=== PATIENT | male | born 1960 | race Caucasian/White ===

== ENCOUNTER 2016-08-15 12:07 | Emergency (ER) | payer OTHER ==
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
[2016-08-15] MEDS ORDERED: OXYCODONE-ACETAMINOPHEN 5-325 MG TABLET PO ONE (12:20)
[2016-08-15 12:47] LABS: ABSOLUTE BASOPHILS # (AUTO) 0.1 10^3/uL (0.0-0.2); ABSOLUTE EOSINOPHILS # (AUTO) 0.2 10^3/uL (0.0-0.6); ABSOLUTE LYMPHOCYTES (AUTO) 1.6 10^3/uL (0.5-4.7); ABSOLUTE MONOCYTES (AUTO) 0.6 10^3/uL (0.1-1.4); ABSOLUTE NEUT (AUTO) 8.1 10^3/uL (1.7-8.2); BASOPHILS % (AUTO) 1.2 % (0-2); HEMATOCRIT 46.3 % (37.9-51.0); HEMOGLOBIN 16.2 g/dL (13.5-17.0); HGB HCT DIFFERENCE 2.3; LYMPHOCYTES % (AUTO) 14.6 % (13-45); MEAN CORPUSCULAR HEMOGLOBIN 32.5 pg (27.0-33.4); MEAN CORPUSCULAR VOLUME 93 fl (80-97); RED BLOOD COUNT 4.98 10^6/uL (4.35-5.55); RED CELL DISTRIBUTION WIDTH 14.7 % (11.5-14.0); SEGMENTED NEUTROPHILS % (AUTO) 76.2 % (42-78); WHITE BLOOD COUNT 10.7 10^3/uL (4.0-10.5)
[2016-08-15 12:58] LABS: APPEARANCE,URINE CLEAR; BILIRUBIN,URINE NEGATIVE (NEGATIVE); GLUCOSE, URINE NEGATIVE (NEGATIVE); KETONES,URINE NEGATIVE (NEGATIVE); LEUKOCYTE ESTERASE,URINE NEGATIVE (NEGATIVE); NITRITE,URINE NEGATIVE (NEGATIVE); PROTEIN,URINE NEGATIVE (NEGATIVE); URINE SPECIFIC GRAVITY 1.009; UROBILINOGEN,URINE NEGATIVE mg/dL (<2.0)
[2016-08-15 13:10] LABS: ALANINE AMINOTRANSFERASE 42 U/L (21-72); ALBUMIN 4.2 g/dL (3.5-5.0); ALKALINE PHOSPHATASE 83 U/L (38-126); ANION GAP 14 (5-19); ASPARTATE AMINO TRANSFERASE 26 U/L (17-59); BILIRUBIN,TOTAL 0.3 mg/dL (0.2-1.3); BLOOD UREA NITROGEN 4 mg/dL (7-20); CARBON DIOXIDE 27 mmol/L (22-30); CHLORIDE 100 mmol/L (98-107); CREATININE RESULT 0.68 mg/dL (0.52-1.25); GLUCOSE 79 mg/dL (75-110); POTASSIUM 5.4 mmol/L (3.6-5.0); SODIUM 140.5 mmol/L (137-145); TOTAL PROTEIN 7.6 g/dL (6.3-8.2)
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
[2016-08-15 14:28] VITALS: BP 132/83
== END 2016-08-15 14:14 | disposition home or self-care (01) ==
LOC: ER 12:07
DX: I96 Gangrene, not elsewhere classified (principal); M79.671 Pain in right foot; J44.9 Chronic obstructive pulmonary disease, unspecified; F17.200 Nicotine dependence, unspecified, uncomplicated; I10 Essential (primary) hypertension; F43.10 Post-traumatic stress disorder, unspecified
CPT/HCPCS: 36415; 80053; 81001; 83605; 85025; 99283

== ENCOUNTER → 2016-12-02 | Outpatient (CLI) | payer OTHER ==
--- NOTE | 2016-12-02 17:21 | XCELERA REPORT ---
[address] [address] Lower Extremity Arterial Evaluation Name: JACKIE MENEZES Age: 56 yrs Gender: Male : 1960 Patient Status: Outpatient Patient Location: Study Date: 12/02/2016 03:57 PM Procedure: A color flow and duplex scan of the lower extremity arteries was performed on the right with velocity and waveform analysis. Reason For Study: RLE PAIN Ordering Physician: FELIX PICKETT Performed By: Silvestre Lawrence Measurements and Calculations Right Left GRINDER HAND PSV 121.8 cm/sec Prox PFA PSV -703.0 cm/sec Dist ELIS PSV 12.3 cm/sec Dist WEB UI DEVELOPER PSV -23.3 cm/sec Dist Mark A PSV 15.5 cm/sec Mati Pedis PSV -15.1 cm/sec Right Side Arterial Evaluation Normal velocity and triphasic waveforms noted in the Common Femoral artery . Biphasic Deep Femoral with stenosis. Occluded Femoral artery with a patent Femero Popliteal bypass, with monophasic flow, preserved velocity with moderate spectral broadening. Trickle flow in the infrageniculate vessels. A large, 5 cm aneurysm just below Popliteal area. Ankle Brachial index was not done. Interpretation Summary Severe hemodynamically significant lesions in the right lower extremity only, on duplex imaging, at rest. Fem Pop, though functioning, poor infrageniculate flow. A large aneurysm noted. Discussed with implementation lead surgeon. 'The patient to keep an appointment With Dr Pickett, in . : FELIX PICKETT > Jose D Yo
== END ==
LOC: SP 15:33
PROVIDERS: ATTEND Surgery Vascular Surgery
DX: M79.661 Pain in right lower leg (principal); R20.0 Anesthesia of skin; I72.4 Aneurysm of artery of lower extremity
CPT/HCPCS: 93926

== ENCOUNTER 2017-08-21 06:55 | Inpatient (IN) | payer MEDICAID, OTHER ==
[2017-08-21] MEDS ORDERED: IPRATROPIUM/ALBUTEROL 0.5-2.5 MG/3 ML AMPUL NEB ONE ×2 (06:59→07:01)
[2017-08-21] MEDS ORDERED: ALBUTEROL SULFATE 0.083% NEB 2.5 MG/3 ML AMPUL NEB ONE ×2 (06:59→07:01)
[2017-08-21] MEDS ORDERED: MIDAZOLAM 2 MG/2 ML INJ IV ONE (07:16)
[2017-08-21] MEDS ORDERED: FENTANYL CITRATE INJ/PF 100 MCG/2 ML AMPUL IV ONE (07:17)
[2017-08-21] MEDS ORDERED: NALOXONE HCL INJ 2 MG/2 ML DISP.SYRIN ONE (07:26)
[2017-08-21] MEDS ORDERED: FLUMAZENIL INJ 0.5 MG/5 ML VIAL ONE (07:30)
--- NOTE | 2017-08-21 07:33 | RADIOLOGY REPORT (SQ) ---
EXAM DESCRIPTION: CHEST SINGLE VIEW CLINICAL HISTORY: hypoxia COMPARISON: None. FINDINGS: Single chest. Large right-sided pneumothorax with evidence of right to left mediastinal shift and flattening of the right hemidiaphragm. This is compatible with a tension pneumothorax. This pneumothorax is approximately 50%. Heart is not enlarged. Elevation the left hemidiaphragm. No right-sided rib fractures. Upper abdominal soft tissues unremarkable. IMPRESSION: 1. Findings compatible with approximately 50% right-sided pneumothorax. There is evidence of tension with right to left mediastinal shift and flattening of the right hemidiaphragm. Report called to Dr. Clay at 0632 hours on 08/21/2027
[2017-08-21 07:39] LABS: ABSOLUTE BASOPHILS # (AUTO) 0.2 10^3/uL (0.0-0.2); ABSOLUTE EOSINOPHILS # (AUTO) 0.4 10^3/uL (0.0-0.6); ABSOLUTE LYMPHOCYTES (AUTO) 4.3 10^3/uL (0.5-4.7); ABSOLUTE MONOCYTES (AUTO) 0.9 10^3/uL (0.1-1.4); ABSOLUTE NEUT (AUTO) 9.3 10^3/uL (1.7-8.2); BASOPHILS % (AUTO) 1.2 % (0-2); EOSINOPHILS % (AUTO) 2.7 % (0-6); HEMATOCRIT 47.1 % (37.9-51.0); HEMOGLOBIN 16.1 g/dL (13.5-17.0); LYMPHOCYTES % (AUTO) 28.4 % (13-45); MEAN CORPUSCULAR HEMOGLOBIN 32.9 pg (27.0-33.4); MEAN CORPUSCULAR HGB CONC 34.1 g/dL (32.0-36.0); MEAN CORPUSCULAR VOLUME 97 fl (80-97); MONOCYTES % (AUTO) 5.9 % (3-13); PLATELET COUNT 432 10^3/uL (150-450); RED BLOOD COUNT 4.88 10^6/uL (4.35-5.55); RED CELL DISTRIBUTION WIDTH 13.8 % (11.5-14.0); SEGMENTED NEUTROPHILS % (AUTO) 61.8 % (42-78); TOTAL CELLS COUNTED % (AUTO) 100 %
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
[2017-08-21 07:41] LABS: INTERNATIONAL RATION (INR) 1.21; PROTHROMBIN TIME 16.1 SEC (11.4-15.4)
[2017-08-21 07:42] LABS: PARTIAL THROMBOPLASTIN TIME 39.9 SEC (23.5-35.8)
[2017-08-21] MEDS ORDERED: FLUMAZENIL INJ 0.5 MG/5 ML VIAL IV ONE (07:45)
[2017-08-21] MEDS ORDERED: NALOXONE HCL INJ 2 MG/2 ML DISP.SYRIN IV ONE (07:45)
[2017-08-21 07:55] LABS: ALANINE AMINOTRANSFERASE 58 U/L (21-72); ALBUMIN 4.6 g/dL (3.5-5.0); ALKALINE PHOSPHATASE 88 U/L (38-126); ANION GAP 13 (5-19); ASPARTATE AMINO TRANSFERASE 58 U/L (17-59); BILIRUBIN,DIRECT 0.3 mg/dL (0.0-0.4); BILIRUBIN,TOTAL 0.3 mg/dL (0.2-1.3); BLOOD UREA NITROGEN 3 mg/dL (7-20); CALCIUM 9.7 mg/dL (8.4-10.2); CARBON DIOXIDE 22 mmol/L (22-30); CHLORIDE 102 mmol/L (98-107); CREATINE KINASE 162 U/L (55-170); GLUCOSE 134 mg/dL (75-110); LIPASE 121.6 U/L (23-300); POTASSIUM 4.4 mmol/L (3.6-5.0); SODIUM 137.2 mmol/L (137-145); TOTAL PROTEIN 7.3 g/dL (6.3-8.2)
[2017-08-21 08:11] LABS: VENOUS BLOOD BASE EXCESS -6.7 mmol/L; VENOUS BLOOD HCO3 22.1 mmol/L (20-32); VENOUS BLOOD PCO2 56.5 mmHg (35-63); VENOUS BLOOD PH 7.21 (7.30-7.42)
--- NOTE | 2017-08-21 08:12 | EKG REPORT ---
SEVERITY:- ABNORMAL ECG - SINUS TACHYCARDIA CONSIDER ANTEROSEPTAL INFARCT NONSPECIFIC ST-T CHANGES INFERIOR LEADS : Confirmed by: Yfn Copeland MD 21-Aug-2017 08:11:38
[2017-08-21 08:17] LABS: NT PRO BNP 235 pg/mL (5-900)
[2017-08-21 08:26] LABS: TROPONIN I < 0.012 ng/mL
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
[2017-08-21] MEDS ORDERED: ACETAMINOPHEN 325 MG TABLET PO PRN (09:56)
[2017-08-21] MEDS ORDERED: IPRATROPIUM/ALBUTEROL 0.5-2.5 MG/3 ML AMPUL NEB PRN (09:56)
[2017-08-21] MEDS ORDERED: GABAPENTIN 300 MG CAPSULE PO ONE (10:09)
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
[2017-08-21] MEDS ORDERED: FOLIC ACID 1 MG TABLET PO ONE (10:45)
[2017-08-21] MEDS ORDERED: MULTIVITAMIN TABLET PO ONE (10:45)
[2017-08-21] MEDS ORDERED: THIAMINE HCL 100 MG TABLET PO ONE (10:45)
[2017-08-21] MEDS: HYDROCODONE/ACETAMINOPHEN 5-325 MG TABLET PO PRN ×2 (11:02→18:22)
[2017-08-21] MEDS: AMLODIPINE BESYLATE 5 MG TABLET PO SCH (11:02)
[2017-08-21] MEDS: FAMOTIDINE 20 MG TABLET PO SCH ×2 (11:03→21:32)
--- NOTE | 2017-08-21 15:40 | RADIOLOGY REPORT (SQ) ---
EXAM DESCRIPTION: CHEST SINGLE VIEW COMPLETED DATE/TIME: 08/21/2017 3:18 pm REASON FOR STUDY: PTX resolution COMPARISON: 08/21/2017 EXAM PARAMETERS: NUMBER OF VIEWS: One view. TECHNIQUE: Single frontal radiographic view of the chest acquired. RADIATION DOSE: NA LIMITATIONS: None. FINDINGS: LUNGS AND PLEURA: There has been further interval decrease in size of the right pneumothor ax with a small apical pneumothorax being identified on the current study. The previously described left retrocardiac volume loss appears improved. There is some blunting of the left costophrenic angl e most consistent with pleural reaction. MEDIASTINUM AND HILAR STRUCTURES: No masses. Contour normal. HEART AND VASCULAR STRUCTURES: Heart normal in size. Normal vasculature. BONES: No acute findings. HARDWARE: The right chest tube appears to have been pulled back with the side hole projected along th e right lateral chest wall. OTHER: No other significant finding. IMPRESSION: Further interval decrease in size of the right pneumothorax with a small apical pneumoth orax being identified on the current study. Other findings as noted above TECHNICAL DOCUMENTATION: JOB ID: [id number] [employer]- All Rights Reserved
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
[2017-08-21] MEDS: LORAZEPAM INJ 2 MG/1 ML VIAL IV PRN ×2 (18:22→22:01)
[2017-08-21] MEDS ORDERED: LIDOCAINE 1% INJ-PF (10 MG/ML) 30 ML SDV ONE ×2 (19:00→19:10)
--- NOTE | 2017-08-21 19:03 | PDOC PROGRESS REPORT ---
Subjective Progress Note for:: 08/21/17 Subjective:: Patient with no complaints however nursing staff noted air leak around the tube. Reason For Visit: RIGHT SPONTANEOUS TENSION PNEUMOTHORAX Physical Exam Vital Signs: Temp Pulse Resp BP Pulse Ox 98.0 F 106 H 18 164/80 H 100 08/21/17 18:04 08/21/17 18:04 08/21/17 18:04 08/21/17 18:04 08/21/17 18:04 Intake & Output 08/20/17 08/21/17 08/22/17 06:59 06:59 06:59 Weight 54.6 kg General appearance: PRESENT: no acute distress, cooperative Respiratory exam: PRESENT: other - Right-sided chest tube is in place but the sideholes are outside of the body Results Laboratory Results: 08/21/17 08/21/17 12:07 15:02 Lactic Acid 1.4 1.7 Impressions: Chest X-Ray 08/21/17 14:29 IMPRESSION: Further interval decrease in size of the right pneumothorax with a small apical pneumothorax being identified on the current study. Other findings as noted above Assessment & Plan - Diagnosis (1) Spontaneous tension pneumothorax Is this a current diagnosis for this admission?: Yes Plan: Status post chest tube placement done in the ER. However the chest tube has now been displaced with the sideholes outside of the patient's body. Will remove the chest tube and new chest tube. Patient understands risks and benefits of the procedure.
--- NOTE | 2017-08-21 19:34 | Operative Report ---
Operative Report DATE OF SURGERY: 08/21/17 PREOPERATIVE DIAGNOSIS: Right pneumothorax. Dysfunctional right-sided chest tube. POSTOPERATIVE DIAGNOSIS: Right-sided pneumothorax. Dysfunctional right-sided chest tube. OPERATION: Right tube thoracostomy SURGEON: JEREMIAS NARVAEZ ANESTHESIA: Local TISSUE REMOVED OR ALTERED: None COMPLICATIONS: None ESTIMATED BLOOD LOSS: Minimal INTRAOPERATIVE FINDINGS: Right-sided chest tube with its sideholes outside of the patient's body. PROCEDURE: Consent was obtained. Procedure was done at the patient's bedside. Patient's right chest was prepped and draped in usual sterile fashion. Local anesthetic was injected. Incision was made at the anterior axillary line couple centimeters below the mammary crease. A tunnel was then created to entered pleural cavity at the level of the mammary crease. The pleural cavity was entered with a Shelley clamp without difficulty. 24 [place] chest tube was placed without difficulty. It was appropriately positioned and it was sutured in place. Dressings were applied and the dysfunctional chest tube that was in place inferior to this new chest tube was pulled after cutting his suture. Occlusive dressings were applied to the wound. Patient tolerated procedure well with no apparent complications. Stat portable chest x-ray was ordered.
--- NOTE | 2017-08-21 19:57 | RADIOLOGY REPORT (SQ) ---
EXAM DESCRIPTION: CHEST SINGLE VIEW COMPLETED DATE/TIME: 08/21/2017 7:43 pm REASON FOR STUDY: chest tube placement COMPARISON: 08/21/2017 EXAM PARAMETERS: NUMBER OF VIEWS: One view. TECHNIQUE: Single frontal radiographic view of the chest acquired. RADIATION DOSE: NA LIMITATIONS: None. FINDINGS: LUNGS AND PLEURA: Chest tube repositioned. The tip in the apex. No visualized pneumothor ax on the right. Minimal atelectasis at the left base. MEDIASTINUM AND HILAR STRUCTURES: No masses. Contour normal. HEART AND VASCULAR STRUCTURES: Heart normal in size. Normal vasculature. BONES: No acute findings. HARDWARE: None in the chest. OTHER: No other significant finding. IMPRESSION: Right chest tube reposition. No pneumothorax identified. TECHNICAL DOCUMENTATION: JOB ID: [id number] [employer]- All Rights Reserved
[2017-08-21] MEDS ORDERED: INFLUENZA ADLT QUAD (36MOS+) 2017-18 VAC 0.5 ML SYR IM PRN (20:41)
[2017-08-22] MEDS: HYDROCODONE/ACETAMINOPHEN 5-325 MG TABLET PO PRN ×3 (06:45→21:47)
[2017-08-22] MEDS: LORAZEPAM INJ 2 MG/1 ML VIAL IV PRN ×5 (06:55→21:06)
[2017-08-22 07:02] LABS: ABSOLUTE BASOPHILS # (AUTO) 0.1 10^3/uL (0.0-0.2); ABSOLUTE LYMPHOCYTES (AUTO) 1.6 10^3/uL (0.5-4.7); ABSOLUTE MONOCYTES (AUTO) 1.1 10^3/uL (0.1-1.4); ABSOLUTE NEUT (AUTO) 9.7 10^3/uL (1.7-8.2); BASOPHILS % (AUTO) 0.7 % (0-2); EOSINOPHILS % (AUTO) 0.4 % (0-6); LYMPHOCYTES % (AUTO) 12.6 % (13-45); MEAN CORPUSCULAR HEMOGLOBIN 32.7 pg (27.0-33.4); MEAN CORPUSCULAR VOLUME 96 fl (80-97); MONOCYTES % (AUTO) 8.8 % (3-13); PLATELET COUNT 340 10^3/uL (150-450); RED BLOOD COUNT 4.15 10^6/uL (4.35-5.55); RED CELL DISTRIBUTION WIDTH 13.9 % (11.5-14.0); SEGMENTED NEUTROPHILS % (AUTO) 77.5 % (42-78); TOTAL CELLS COUNTED % (AUTO) 100 %; WHITE BLOOD COUNT 12.4 10^3/uL (4.0-10.5)
[2017-08-22 07:15] LABS: ALANINE AMINOTRANSFERASE 49 U/L (21-72); ALBUMIN 3.8 g/dL (3.5-5.0); ALKALINE PHOSPHATASE 64 U/L (38-126); ANION GAP 9 (5-19); ASPARTATE AMINO TRANSFERASE 36 U/L (17-59); BILIRUBIN,DIRECT 0.3 mg/dL (0.0-0.4); BILIRUBIN,TOTAL 0.5 mg/dL (0.2-1.3); BLOOD UREA NITROGEN 16 mg/dL (7-20); CALCIUM 9.9 mg/dL (8.4-10.2); CARBON DIOXIDE 22 mmol/L (22-30); CHLORIDE 101 mmol/L (98-107); CHOLESTEROL 168.55 mg/dL (0-200); GLUCOSE 89 mg/dL (75-110); HEMOGLOBIN 13.6 g/dL (13.5-17.0); POTASSIUM 4.9 mmol/L (3.6-5.0); TOTAL PROTEIN 6.3 g/dL (6.3-8.2); TRIGLYCERIDES 47 mg/dL (<150)
[2017-08-22 07:26] LABS: DIRECT LDL 36 mg/dL (<100)
--- NOTE | 2017-08-22 08:37 | RADIOLOGY REPORT (SQ) ---
EXAM DESCRIPTION: CHEST SINGLE VIEW COMPLETED DATE/TIME: 08/22/2017 8:20 am REASON FOR STUDY: Pneumothorax COMPARISON: Chest films 08/21/2017 EXAM PARAMETERS: NUMBER OF VIEWS: One view. TECHNIQUE: Single frontal radiographic view of the chest acquired. RADIATION DOSE: NA LIMITATIONS: None. FINDINGS: LUNGS AND PLEURA: Right chest tube in good positioning. There is a trace right apical pneumothorax marked with arrows. Trace right chest wall air, stable compared to previous studies. Right lung is well inflated. No focal infiltrates. On the left side, there is old shrapnel and bandlike irregular scar over the lung base, and left apic al pleural-parenchymal nodular thickening likely chronic. No left pneumothorax. No right or left pleural effusion MEDIASTINUM AND HILAR STRUCTURES: No masses. Contour normal. HEART AND VASCULAR STRUCTURES: Heart normal in size. Normal vasculature. BONES: No acute findings. HARDWARE: Right-sided chest tube in good positioning OTHER: No other significant finding. IMPRESSION: Right chest tube in good positioning. Trace right apical pneumothorax. Stable minimal right lateral chest wall air Chronic scarring at the left lung base and left lung apex. TECHNICAL DOCUMENTATION: JOB ID: [id number] [employer] 2000- All Rights Reserved
[2017-08-22] MEDS: FAMOTIDINE 20 MG TABLET PO SCH ×2 (10:35→21:48)
[2017-08-22] MEDS: FOLIC ACID 1 MG TABLET PO SCH (10:35)
[2017-08-22] MEDS: AMLODIPINE BESYLATE 5 MG TABLET PO SCH (10:35)
[2017-08-22] MEDS: MULTIVITAMIN TABLET PO SCH (10:36)
[2017-08-22] MEDS: THIAMINE HCL 100 MG TABLET PO SCH (10:36)
[2017-08-22] MEDS: FLUTICASONE/SALMETEROL DISKUS 250-50 MCG/DOSE IH SCH (10:47)
[2017-08-22] MEDS ORDERED: DULOXETINE HCL 30 MG CAPSULE.DR PO ONE (13:00)
[2017-08-22] MEDS ORDERED: GABAPENTIN 100 MG CAPSULE PO ONE (13:00)
[2017-08-22] MEDS ORDERED: AMLODIPINE BESYLATE 5 MG TABLET PO SCH (13:03)
--- NOTE | 2017-08-22 13:35 | PDOC PROGRESS REPORT ---
Subjective Progress Note for:: 08/22/17 Subjective:: Pt states that he is short of breath. Pt states that he has been shaking a lot. Nursing states that pt has been given Ativan overnight. Nursing states that she is having pain at sight of chest tube. Reason For Visit: RIGHT SPONTANEOUS TENSION PNEUMOTHORAX Physical Exam Vital Signs: Temp Pulse Resp BP Pulse Ox 98.0 F 92 16 152/73 H 98 08/22/17 07:32 08/22/17 07:15 08/22/17 03:17 08/22/17 07:15 08/22/17 07:15 Intake & Output 08/21/17 08/22/17 08/23/17 06:59 06:59 06:59 Intake Total 111 Output Total 250 Balance -139 Weight 54.7 kg General appearance: PRESENT: no acute distress, well-developed, well-nourished Head exam: PRESENT: atraumatic, normocephalic Eye exam: PRESENT: conjunctiva pink, EOMI. ABSENT: scleral icterus Ear exam: PRESENT: normal external ear exam Mouth exam: PRESENT: moist, tongue midline Neck exam: ABSENT: carotid bruit, JVD, lymphadenopathy, thyromegaly Respiratory exam: PRESENT: other - +chest tube on right side, + coarse breaths bilaterally, +wheezing Cardiovascular exam: PRESENT: RRR. ABSENT: diastolic murmur, rubs, systolic murmur Pulses: PRESENT: normal dorsalis pedis pul Vascular exam: PRESENT: normal capillary refill GI/Abdominal exam: PRESENT: normal bowel sounds, soft. ABSENT: distended, guarding, mass, organolmegaly, rebound, tenderness Rectal exam: PRESENT: deferred Extremities exam: PRESENT: full ROM. ABSENT: calf tenderness, clubbing, pedal edema Musculoskeletal exam: PRESENT: full ROM Neurological exam: PRESENT: alert, awake, oriented to person, oriented to place , oriented to time, oriented to situation, CN II-XII grossly intact. ABSENT: motor sensory deficit Psychiatric exam: PRESENT: other - +tremor of hands Skin exam: PRESENT: dry, intact, warm. ABSENT: cyanosis, rash Results Laboratory Results: 08/22/17 06:32 08/22/17 06:32 08/21/17 08/22/17 08/22/17 15:02 06:32 06:32 WBC 12.4 H RBC 4.15 L Hgb 13.6 D Hct 40.0 MCV 96 MCH 32.7 MCHC 34.0 RDW 13.9 Plt Count 340 Seg Neutrophils % 77.5 Lymphocytes % 12.6 L Monocytes % 8.8 Eosinophils % 0.4 Basophils % 0.7 Absolute Neutrophils 9.7 H Absolute Lymphocytes 1.6 Absolute Monocytes 1.1 Absolute Eosinophils 0.0 Absolute Basophils 0.1 Sodium 132.0 L Potassium 4.9 Chloride 101 Carbon Dioxide 22 Anion Gap 9 BUN 16 Creatinine 0.69 Est GFR ( Amer) > 60 Est GFR (Non-Af Amer) > 60 Glucose 89 Lactic Acid 1.7 Calcium 9.9 Total Bilirubin 0.5 AST 36 ALT 49 Alkaline Phosphatase 64 Total Protein 6.3 Albumin 3.8 Triglycerides 47 Cholesterol 168.55 LDL Cholesterol Direct 36 VLDL Cholesterol 9.0 L HDL Cholesterol 135 Impressions: Chest X-Ray 08/22/17 06:00 IMPRESSION: Right chest tube in good positioning. Trace right apical pneumothorax. Stable minimal right lateral chest wall air Chronic scarring at the left lung base and left lung apex. Assessment & Plan - Diagnosis (1) Spontaneous tension pneumothorax Is this a current diagnosis for this admission?: Yes Plan: Status post chest tube placement: Chest tube in place. Appreciate Surgery's assistance. 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 Will place patient on statin for anti inflammatory benefit. (3) EtOH dependence Is this a current diagnosis for this admission?: Yes Plan: Will continue supplement replacement thiamine, folate, and multivitamin. Will place on scheduled Klonopin 1 mg every 8 hours with parameters to hold for sedation. Will continue Ativan as needed. (4) Tobacco dependence Is this a current diagnosis for this admission?: Yes Plan: Nicotine patch. (5) Epistaxis Is this a current diagnosis for this admission?: Yes Plan: Will continue monitor. (6) Moderate protein-calorie malnutrition Is this a current diagnosis for this admission?: Yes Plan: Supplemental drinks (7) Depression Is this a current diagnosis for this admission?: Yes Plan: Cymbalta (8) Emphysema lung Is this a current diagnosis for this admission?: Yes Plan: Most likely cause of patient's right spontaneous pneumothorax: will continue breathing treatment. (9) COPD (chronic obstructive pulmonary disease) Qualifiers: COPD type: COPD with acute exacerbation Qualified Code(s): J44.1 - Chronic obstructive pulmonary disease with (acute) exacerbation Is this a current diagnosis for this admission?: Yes Plan: Will place on DuoNeb Q6 hours. Will place on Solumedrol IV. (10) History of DVT (deep vein thrombosis) Is this a current diagnosis for this admission?: Yes Plan: We will continue Pradaxa - Time Time Spent with patient: 15-24 minutes Anticipated discharge: Home
[2017-08-22] MEDS: IPRATROPIUM/ALBUTEROL 0.5-2.5 MG/3 ML AMPUL NEB SCH ×2 (13:57→19:57)
[2017-08-22] MEDS: METHYLPREDNISOLONE INJ 40 MG/1 ML SDV IV SCH ×2 (14:03→21:59)
[2017-08-22] MEDS: CLONAZEPAM 1 MG TABLET PO SCH ×2 (14:04→21:46)
[2017-08-22] MEDS ORDERED: NICOTINE 21 MG/24 HR PATCH.TD24 TD ONE ×2 (17:00→22:00)
--- NOTE | 2017-08-22 17:20 | PDOC PROGRESS REPORT ---
Subjective Progress Note for:: 08/22/17 Subjective:: Mild pains at chest tube site Reason For Visit: RIGHT SPONTANEOUS TENSION PNEUMOTHORAX Physical Exam Vital Signs: Temp Pulse Resp BP Pulse Ox 98.7 F 110 H 19 129/69 H 97 08/22/17 16:39 08/22/17 16:39 08/22/17 16:39 08/22/17 16:39 08/22/17 16:39 Intake & Output 08/21/17 08/22/17 08/23/17 06:59 06:59 06:59 Intake Total 111 1065 Output Total 250 Balance -139 1065 Weight 54.7 kg Exam: Chest tube no obvious ait leak. Results Laboratory Results: 08/22/17 06:32 08/22/17 06:32 08/22/17 08/22/17 06:32 06:32 WBC 12.4 H RBC 4.15 L Hgb 13.6 D Hct 40.0 MCV 96 MCH 32.7 MCHC 34.0 RDW 13.9 Plt Count 340 Seg Neutrophils % 77.5 Lymphocytes % 12.6 L Monocytes % 8.8 Eosinophils % 0.4 Basophils % 0.7 Absolute Neutrophils 9.7 H Absolute Lymphocytes 1.6 Absolute Monocytes 1.1 Absolute Eosinophils 0.0 Absolute Basophils 0.1 Sodium 132.0 L Potassium 4.9 Chloride 101 Carbon Dioxide 22 Anion Gap 9 BUN 16 Creatinine 0.69 Est GFR ( Amer) > 60 Est GFR (Non-Af Amer) > 60 Glucose 89 Calcium 9.9 Total Bilirubin 0.5 AST 36 ALT 49 Alkaline Phosphatase 64 Total Protein 6.3 Albumin 3.8 Triglycerides 47 Cholesterol 168.55 LDL Cholesterol Direct 36 VLDL Cholesterol 9.0 L HDL Cholesterol 135 Impressions: Chest X-Ray 08/22/17 06:00 IMPRESSION: Right chest tube in good positioning. Trace right apical pneumothorax. Stable minimal right lateral chest wall air Chronic scarring at the left lung base and left lung apex. Assessment & Plan - Time Time Spent with patient: 15-24 minutes - Inpatient Certification Medical Necessity: Need Close Monitoring Due to Risk of Patient Decompensation, Risk of Complication if Not Cared For in Hospital - Plan Summary Plan Summary: Chest xray shows minimal apical pneumothorax. Leave chest tube tosuction today. Recheck CXR in am Possible D/C chest tube in 24 - 48 hrs.
[2017-08-22] MEDS: GABAPENTIN 100 MG CAPSULE PO SCH (17:53)
[2017-08-22] MEDS: DABIGATRAN ETEXILATE 150 MG CAPSULE PO SCH (21:43)
[2017-08-22] MEDS: SIMVASTATIN 10 MG TABLET PO SCH (21:48)
[2017-08-23] MEDS: GABAPENTIN 100 MG CAPSULE PO SCH ×5 (01:32→23:27)
[2017-08-23] MEDS: IPRATROPIUM/ALBUTEROL 0.5-2.5 MG/3 ML AMPUL NEB SCH ×4 (01:53→20:02)
[2017-08-23] MEDS: CLONAZEPAM 1 MG TABLET PO SCH ×3 (07:04→21:16)
[2017-08-23] MEDS: HYDROCODONE/ACETAMINOPHEN 5-325 MG TABLET PO PRN ×2 (07:05→16:32)
[2017-08-23] MEDS: METHYLPREDNISOLONE INJ 40 MG/1 ML SDV IV SCH ×3 (07:06→21:17)
--- NOTE | 2017-08-23 09:06 | PDOC PROGRESS REPORT ---
Subjective Progress Note for:: 08/23/17 Subjective:: Pt states that his breathing is much improved. Pt states that he is still coughing at times. Pt states that the ativan is helping. Reason For Visit: RIGHT SPONTANEOUS TENSION PNEUMOTHORAX Physical Exam Vital Signs: Temp Pulse Resp BP Pulse Ox 97.9 F 118 H 18 133/68 H 93 08/23/17 08:43 08/23/17 08:43 08/23/17 08:43 08/23/17 08:43 08/23/17 08:43 Intake & Output 08/22/17 08/23/17 08/24/17 06:59 06:59 06:59 Intake Total 111 2196 Output Total 250 1360 Balance -139 836 Weight 54.7 kg 56.6 kg General appearance: PRESENT: no acute distress, thin Head exam: PRESENT: atraumatic, normocephalic Eye exam: PRESENT: conjunctiva pink, EOMI. ABSENT: scleral icterus Ear exam: PRESENT: normal external ear exam Mouth exam: PRESENT: moist, tongue midline Neck exam: ABSENT: carotid bruit, JVD, lymphadenopathy, thyromegaly Respiratory exam: PRESENT: accessory muscle use, wheezes - scant wheezing. ABSENT: rales, rhonchi Cardiovascular exam: PRESENT: RRR. ABSENT: diastolic murmur, rubs, systolic murmur Pulses: PRESENT: normal dorsalis pedis pul Vascular exam: PRESENT: normal capillary refill GI/Abdominal exam: PRESENT: normal bowel sounds, soft. ABSENT: distended, guarding, mass, organolmegaly, rebound, tenderness Rectal exam: PRESENT: deferred Extremities exam: PRESENT: full ROM. ABSENT: calf tenderness, clubbing, pedal edema Musculoskeletal exam: PRESENT: other - bilateral AKA Neurological exam: PRESENT: alert, awake, oriented to person, oriented to place , oriented to time, oriented to situation, CN II-XII grossly intact. ABSENT: motor sensory deficit Psychiatric exam: PRESENT: appropriate affect, normal mood. ABSENT: homicidal ideation, suicidal ideation Skin exam: PRESENT: dry, intact, warm. ABSENT: cyanosis, rash Results Laboratory Results: 08/22/17 06:32 08/22/17 06:32 Impressions: Chest X-Ray 08/22/17 06:00 IMPRESSION: Right chest tube in good positioning. Trace right apical pneumothorax. Stable minimal right lateral chest wall air Chronic scarring at the left lung base and left lung apex. Assessment & Plan - Diagnosis (1) Spontaneous tension pneumothorax Is this a current diagnosis for this admission?: Yes Plan: Status post chest tube placement: Chest tube in place. Appreciate Surgery's assistance. Will check CXR. 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 Statin. (3) EtOH dependence Is this a current diagnosis for this admission?: Yes Plan: Will continue supplement replacement thiamine, folate, and multivitamin. Will continue scheduled Klonopin 1 mg every 8 hours with parameters to hold for sedation. Will continue Ativan as needed. (4) Tobacco dependence Is this a current diagnosis for this admission?: Yes Plan: Nicotine patch. (5) Epistaxis Is this a current diagnosis for this admission?: Yes Plan: Will continue monitor. (6) Moderate protein-calorie malnutrition Is this a current diagnosis for this admission?: Yes Plan: Supplemental drinks (7) Depression Is this a current diagnosis for this admission?: Yes Plan: Cymbalta (8) Emphysema lung Is this a current diagnosis for this admission?: Yes Plan: Most likely cause of patient's right spontaneous pneumothorax: will continue breathing treatment. (9) COPD (chronic obstructive pulmonary disease) Qualifiers: COPD type: COPD with acute exacerbation Qualified Code(s): J44.1 - Chronic obstructive pulmonary disease with (acute) exacerbation Is this a current diagnosis for this admission?: Yes Plan: Will place on DuoNeb Q6 hours. Will continue Solumedrol IV Q8. (10) History of DVT (deep vein thrombosis) Is this a current diagnosis for this admission?: Yes Plan: Will continue Pradaxa - Time Time Spent with patient: 15-24 minutes
[2017-08-23] MEDS: DABIGATRAN ETEXILATE 150 MG CAPSULE PO SCH ×2 (10:12→21:14)
[2017-08-23] MEDS: NICOTINE 21 MG/24 HR PATCH.TD24 TD SCH (10:12)
[2017-08-23] MEDS: FOLIC ACID 1 MG TABLET PO SCH (10:13)
[2017-08-23] MEDS: MULTIVITAMIN TABLET PO SCH (10:13)
[2017-08-23] MEDS: AMLODIPINE BESYLATE 10 MG TABLET PO SCH (10:13)
[2017-08-23] MEDS: DULOXETINE HCL 30 MG CAPSULE.DR PO SCH (10:14)
[2017-08-23] MEDS: THIAMINE HCL 100 MG TABLET PO SCH (10:14)
[2017-08-23] MEDS: FAMOTIDINE 20 MG TABLET PO SCH ×2 (10:14→21:16)
[2017-08-23] MEDS: FLUTICASONE/SALMETEROL DISKUS 250-50 MCG/DOSE IH SCH (10:16)
[2017-08-23] MEDS: IPRATROPIUM/ALBUTEROL 120 PUFF/4 GM MDI IH SCH (10:16)
--- NOTE | 2017-08-23 12:05 | RADIOLOGY REPORT (SQ) ---
EXAM DESCRIPTION: CHEST PA/LAT COMPLETED DATE/TIME: 08/23/2017 10:16 am REASON FOR STUDY: Pneumothorax COMPARISON: 08/22/2017. EXAM PARAMETERS: NUMBER OF VIEWS: two views TECHNIQUE: Digital Frontal and Lateral radiographic views of the chest acquired. RADIATION DOSE: NA LIMITATIONS: none FINDINGS: LUNGS AND PLEURA: Interval resolution of right apical pneumothorax. Chronic left pleural thickening. Lung [place] are otherwise clear of infiltrates. MEDIASTINUM AND HILAR STRUCTURES: No masses or contour abnormalities. HEART AND VASCULAR STRUCTURES: Heart normal size. Pulmonary vasculature is normal. BONES: No acute findings. HARDWARE: None in the chest. OTHER: Right chest tube directed toward right lung apex. Subcutaneous air along right lower chest wa ll. Chest leads in place. IMPRESSION: Resolution right apical pneumothorax. Residua subcutaneous air right lower chest wall. Otherwise no significant change. TECHNICAL DOCUMENTATION: JOB ID: [id number] [employer]- All Rights Reserved
--- NOTE | 2017-08-23 14:36 | PDOC PROGRESS REPORT ---
Subjective Progress Note for:: 08/23/17 Subjective:: No complaints, no shortness of breath. Patient had chest x-ray this morning off suction. Reason For Visit: RIGHT SPONTANEOUS TENSION PNEUMOTHORAX Physical Exam Vital Signs: Temp Pulse Resp BP Pulse Ox 98.6 F 120 H 16 128/83 H 95 08/23/17 10:47 08/23/17 10:47 08/23/17 10:47 08/23/17 10:47 08/23/17 10:47 Intake & Output 08/22/17 08/23/17 08/24/17 06:59 06:59 06:59 Intake Total 111 2202 575 Output Total 250 1360 150 Balance -139 842 425 Weight 54.7 kg 56.6 kg 59.1 kg General appearance: PRESENT: no acute distress Respiratory exam: PRESENT: other - Chest tube in position. There is an intermittent air leak. There is no evidence of subcutaneous emphysema. Results Laboratory Results: 08/22/17 06:32 08/22/17 06:32 Impressions: Chest X-Ray 08/23/17 09:00 IMPRESSION: Resolution right apical pneumothorax. Residua subcutaneous air right lower chest wall. Otherwise no significant change. Surgeon interpretation: Agree; pneumothorax appears almost resolved Assessment & Plan - Diagnosis (1) Emphysema lung Is this a current diagnosis for this admission?: Yes Plan: Plan: 1. Leave chest tube in today, on waterseal, and observe air leak. If airway closes off tomorrow, will consider removing chest tube. 2. This is patient's first pneumothorax; he has emphysema; he continues to smoke regularly.
[2017-08-23] MEDS: SIMVASTATIN 10 MG TABLET PO SCH (21:15)
[2017-08-24] MEDS: IPRATROPIUM/ALBUTEROL 0.5-2.5 MG/3 ML AMPUL NEB SCH ×4 (02:23→15:52)
[2017-08-24] MEDS: CLONAZEPAM 1 MG TABLET PO SCH ×3 (06:55→21:53)
[2017-08-24] MEDS: GABAPENTIN 100 MG CAPSULE PO SCH ×3 (06:55→18:14)
[2017-08-24] MEDS: METHYLPREDNISOLONE INJ 40 MG/1 ML SDV IV SCH ×3 (06:55→21:54)
[2017-08-24 06:59] LABS: HEMATOCRIT 39.7 % (37.9-51.0); HEMOGLOBIN 13.6 g/dL (13.5-17.0); MEAN CORPUSCULAR HEMOGLOBIN 32.8 pg (27.0-33.4); MEAN CORPUSCULAR HGB CONC 34.3 g/dL (32.0-36.0); MEAN CORPUSCULAR VOLUME 96 fl (80-97); PLATELET COUNT 298 10^3/uL (150-450); RED BLOOD COUNT 4.15 10^6/uL (4.35-5.55); RED CELL DISTRIBUTION WIDTH 13.9 % (11.5-14.0); WHITE BLOOD COUNT 16.2 10^3/uL (4.0-10.5)
[2017-08-24 07:18] LABS: ALBUMIN 3.9 g/dL (3.5-5.0); ANION GAP 8 (5-19); BLOOD UREA NITROGEN 16 mg/dL (7-20); CALCIUM 9.9 mg/dL (8.4-10.2); CARBON DIOXIDE 27 mmol/L (22-30); CHLORIDE 100 mmol/L (98-107); GLUCOSE 112 mg/dL (75-110); POTASSIUM 4.5 mmol/L (3.6-5.0); SODIUM 134.8 mmol/L (137-145); TOTAL PROTEIN 6.3 g/dL (6.3-8.2)
[2017-08-24 07:19] LABS: ALANINE AMINOTRANSFERASE 44 U/L (21-72); ALKALINE PHOSPHATASE 55 U/L (38-126); ASPARTATE AMINO TRANSFERASE 29 U/L (17-59); BILIRUBIN,DIRECT 0.2 mg/dL (0.0-0.4); BILIRUBIN,TOTAL 0.2 mg/dL (0.2-1.3)
[2017-08-24 07:56] LABS: ABSOLUTE LYMPHOCYTES# (MANUAL) 1.1 10^3/uL (0.5-4.7); ABSOLUTE MONOCYTES # (MANUAL) 1.1 10^3/uL (0.1-1.4); ABSOLUTE NEUTROPHILS# (MANUAL) 13.9 10^3/uL (1.7-8.2); BAND NEUTROPHILS % (MANUAL) 5 % (3-5); BASOPHILS % (MANUAL) 0 % (0-2); EOSINOPHILS % (MANUAL) 0 % (0-6); LYMPHOCYTES % (MANUAL) 7 % (13-45); MONOCYTES % (MANUAL) 7 % (3-13); SEGMENTED NEUTROPHILS % (MAN) 81 % (42-78); TOTAL CELLS COUNTED 100
[2017-08-24 08:03] LABS: PLATELET COMMENT ADEQUATE; RBC MORPHOLOGY COMMENT NORMO-CYTIC/CHROMIC
[2017-08-24] MEDS: IPRATROPIUM/ALBUTEROL 120 PUFF/4 GM MDI IH SCH (09:05)
[2017-08-24] MEDS: FLUTICASONE/SALMETEROL DISKUS 250-50 MCG/DOSE IH SCH (09:05)
[2017-08-24] MEDS: DABIGATRAN ETEXILATE 150 MG CAPSULE PO SCH ×2 (09:12→21:52)
[2017-08-24] MEDS: FAMOTIDINE 20 MG TABLET PO SCH ×2 (09:13→21:54)
[2017-08-24] MEDS: DULOXETINE HCL 30 MG CAPSULE.DR PO SCH (09:13)
[2017-08-24] MEDS: HYDROCODONE/ACETAMINOPHEN 5-325 MG TABLET PO PRN ×3 (09:14→21:53)
[2017-08-24] MEDS: THIAMINE HCL 100 MG TABLET PO SCH (09:14)
[2017-08-24] MEDS: AMLODIPINE BESYLATE 10 MG TABLET PO SCH (09:14)
[2017-08-24] MEDS: FOLIC ACID 1 MG TABLET PO SCH (09:14)
[2017-08-24] MEDS: MULTIVITAMIN TABLET PO SCH (09:14)
[2017-08-24] MEDS: NICOTINE 21 MG/24 HR PATCH.TD24 TD SCH (09:15)
--- NOTE | 2017-08-24 14:26 | PDOC PROGRESS REPORT ---
Subjective Progress Note for:: 08/24/17 Subjective:: Pt states that he is feeling much better. Pt states he is breathing better. Reason For Visit: RIGHT SPONTANEOUS TENSION PNEUMOTHORAX Physical Exam Vital Signs: Temp Pulse Resp BP Pulse Ox 98.3 F 99 18 128/67 H 98 08/24/17 12:35 08/24/17 12:35 08/24/17 12:35 08/24/17 12:35 08/24/17 12:35 Intake & Output 08/23/17 08/24/17 08/25/17 06:59 06:59 06:59 Intake Total 2202 1472 350 Output Total 1360 1700 575 Balance 842 -228 -225 Weight 56.6 kg 58.5 kg General appearance: PRESENT: no acute distress, thin Head exam: PRESENT: atraumatic, normocephalic Eye exam: PRESENT: conjunctiva pink, EOMI. ABSENT: scleral icterus Ear exam: PRESENT: normal external ear exam Mouth exam: PRESENT: moist, tongue midline Neck exam: ABSENT: carotid bruit, JVD, lymphadenopathy, thyromegaly Respiratory exam: PRESENT: other - + Right Side with slightly diminished breath sounds and scant wheezing, +Left sided breath improved with scant wheezing. Cardiovascular exam: PRESENT: RRR. ABSENT: diastolic murmur, rubs, systolic murmur Pulses: PRESENT: other - bilateral AKA GI/Abdominal exam: PRESENT: normal bowel sounds, soft. ABSENT: distended, guarding, mass, organolmegaly, rebound, tenderness Rectal exam: PRESENT: deferred Extremities exam: PRESENT: other - Bilatera AKA Musculoskeletal exam: PRESENT: other - Bilateral AKA Neurological exam: PRESENT: alert, awake, oriented to person, oriented to place , oriented to time, oriented to situation, CN II-XII grossly intact. ABSENT: motor sensory deficit Psychiatric exam: PRESENT: appropriate affect, normal mood. ABSENT: homicidal ideation, suicidal ideation Skin exam: PRESENT: dry, intact, warm. ABSENT: cyanosis, rash Results Laboratory Results: 08/24/17 05:49 08/24/17 05:49 08/24/17 08/24/17 05:49 05:49 WBC 16.2 H RBC 4.15 L Hgb 13.6 Hct 39.7 MCV 96 MCH 32.8 MCHC 34.3 RDW 13.9 Plt Count 298 Seg Neutrophils % Not Reportable Lymphocytes % Not Reportable Monocytes % Not Reportable Eosinophils % Not Reportable Basophils % Not Reportable Absolute Neutrophils Not Reportable Absolute Lymphocytes Not Reportable Absolute Monocytes Not Reportable Absolute Eosinophils Not Reportable Absolute Basophils Not Reportable Sodium 134.8 L Potassium 4.5 Chloride 100 Carbon Dioxide 27 Anion Gap 8 BUN 16 Creatinine 0.59 Est GFR ( Amer) > 60 Est GFR (Non-Af Amer) > 60 Glucose 112 H Calcium 9.9 Total Bilirubin 0.2 AST 29 ALT 44 Alkaline Phosphatase 55 Total Protein 6.3 Albumin 3.9 Impressions: Chest X-Ray 08/23/17 09:00 IMPRESSION: Resolution right apical pneumothorax. Residua subcutaneous air right lower chest wall. Otherwise no significant change. Assessment & Plan - Diagnosis (1) Spontaneous tension pneumothorax Is this a current diagnosis for this admission?: Yes Plan: Status post chest tube placement: Chest tube in place. Appreciate Surgery's assistance. 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 Statin. (3) EtOH dependence Is this a current diagnosis for this admission?: Yes Plan: Will continue supplement replacement thiamine, folate, and multivitamin. Will continue scheduled Klonopin 1 mg every 8 hours with parameters to hold for sedation. Will continue Ativan as needed. (4) Tobacco dependence Is this a current diagnosis for this admission?: Yes Plan: Nicotine patch. (5) Epistaxis Is this a current diagnosis for this admission?: Yes Plan: Will continue monitor. (6) Moderate protein-calorie malnutrition Is this a current diagnosis for this admission?: Yes Plan: Supplemental drinks (7) Depression Is this a current diagnosis for this admission?: Yes Plan: Cymbalta (8) Emphysema lung Is this a current diagnosis for this admission?: Yes Plan: Most likely cause of patient's right spontaneous pneumothorax: will continue breathing treatment. (9) COPD (chronic obstructive pulmonary disease) Qualifiers: COPD type: COPD with acute exacerbation Qualified Code(s): J44.1 - Chronic obstructive pulmonary disease with (acute) exacerbation Is this a current diagnosis for this admission?: Yes Plan: Acute Exacerbation of COPD: Will change DuoNeb Q8 hours. Will continue Solumedrol IV Q8. (10) Leukocytosis Is this a current diagnosis for this admission?: Yes Plan: Secondary to Steroids: Will continue to monitor. (11) Hyponatremia Is this a current diagnosis for this admission?: Yes Plan: in setting of ETOH dependence: Improving. Will continue to monitor. (12) History of DVT (deep vein thrombosis) Is this a current diagnosis for this admission?: Yes Plan: Will continue Pradaxa - Time Time Spent with patient: Less than 15 minutes
--- NOTE | 2017-08-24 17:28 | PDOC PROGRESS REPORT ---
Subjective Progress Note for:: 08/24/17 Subjective:: Patient has no complaints. Still bubbling through his chest tube. Reason For Visit: RIGHT SPONTANEOUS TENSION PNEUMOTHORAX Physical Exam Vital Signs: Temp Pulse Resp BP Pulse Ox 98.8 F 96 18 131/65 H 98 08/24/17 16:40 08/24/17 16:40 08/24/17 16:40 08/24/17 16:40 08/24/17 16:40 Intake & Output 08/23/17 08/24/17 08/25/17 06:59 06:59 06:59 Intake Total 2202 1472 350 Output Total 1360 1700 575 Balance 842 228 -225 Weight 56.6 kg 58.5 kg General appearance: PRESENT: no acute distress Respiratory exam: PRESENT: other - Patient still bubbling intermittently out of his chest tube. I took his entire chest tube dressing down. I checked the old chest tube site the new chest tube side and there is no subcutaneous emphysema or bubbling at the exit site. Dressings reapplied. Results Laboratory Results: 08/24/17 05:49 08/24/17 05:49 08/24/17 08/24/17 05:49 05:49 WBC 16.2 H RBC 4.15 L Hgb 13.6 Hct 39.7 MCV 96 MCH 32.8 MCHC 34.3 RDW 13.9 Plt Count 298 Seg Neutrophils % Not Reportable Lymphocytes % Not Reportable Monocytes % Not Reportable Eosinophils % Not Reportable Basophils % Not Reportable Absolute Neutrophils Not Reportable Absolute Lymphocytes Not Reportable Absolute Monocytes Not Reportable Absolute Eosinophils Not Reportable Absolute Basophils Not Reportable Sodium 134.8 L Potassium 4.5 Chloride 100 Carbon Dioxide 27 Anion Gap 8 BUN 16 Creatinine 0.59 Est GFR ( Amer) > 60 Est GFR (Non-Af Amer) > 60 Glucose 112 H Calcium 9.9 Total Bilirubin 0.2 AST 29 ALT 44 Alkaline Phosphatase 55 Total Protein 6.3 Albumin 3.9 Impressions: Chest X-Ray 08/23/17 09:00 IMPRESSION: Resolution right apical pneumothorax. Residua subcutaneous air right lower chest wall. Otherwise no significant change. Assessment & Plan - Diagnosis (1) Emphysema lung Is this a current diagnosis for this admission?: Yes Plan: Status post second chest tube placement for spontaneous pneumothorax right side with persistent, intermittent air leak, no respiratory distress, no subcu air Recommendations: 1. Keep chest tube to waterseal 2. We will check PA lateral chest x-ray tomorrow. If lung is still up, patient may be a candidate for going home with a Heimlich valve
[2017-08-24] MEDS: SIMVASTATIN 10 MG TABLET PO SCH (21:53)
[2017-08-25] MEDS: GABAPENTIN 100 MG CAPSULE PO SCH ×4 (00:08→18:12)
[2017-08-25] MEDS: IPRATROPIUM/ALBUTEROL 0.5-2.5 MG/3 ML AMPUL NEB SCH ×3 (00:14→16:11)
[2017-08-25] MEDS: METHYLPREDNISOLONE INJ 40 MG/1 ML SDV IV SCH ×2 (06:46→13:37)
[2017-08-25] MEDS: CLONAZEPAM 1 MG TABLET PO SCH ×2 (06:47→13:37)
[2017-08-25] MEDS: HYDROCODONE/ACETAMINOPHEN 5-325 MG TABLET PO PRN ×2 (07:42→16:36)
--- NOTE | 2017-08-25 08:40 | RADIOLOGY REPORT (SQ) ---
EXAM DESCRIPTION: CHEST PA/LAT COMPLETED DATE/TIME: 08/25/2017 7:27 am REASON FOR STUDY: Status of pneumothorax right chest COMPARISON: 08/23/2017 NUMBER OF VIEWS: Two view TECHNIQUE: Frontal and lateral radiographic images of the chest acquired. LIMITATIONS: None. FINDINGS: LUNGS AND PLEURA: Less than 10% right apical pneumothorax. Increasing density left lower lobe with ipsilateral volume loss. No effusions. MEDIASTINUM AND HILAR STRUCTURES: Stable heart size and mediastinal structures. HEART AND VASCULAR STRUCTURES: Stable appearance. SUPPORT DEVICES: Appropriate location without change. BONES: No acute findings. OTHER: No other significant finding. IMPRESSION: 10% right apical pneumothorax. TECHNICAL DOCUMENTATION: JOB ID: [id number] [employer]- All Rights Reserved
[2017-08-25] MEDS: FOLIC ACID 1 MG TABLET PO SCH (10:00)
[2017-08-25] MEDS: FLUTICASONE/SALMETEROL DISKUS 250-50 MCG/DOSE IH SCH (10:00)
[2017-08-25] MEDS: DABIGATRAN ETEXILATE 150 MG CAPSULE PO SCH (10:00)
[2017-08-25] MEDS: MULTIVITAMIN TABLET PO SCH (10:02)
[2017-08-25] MEDS: DULOXETINE HCL 30 MG CAPSULE.DR PO SCH (10:02)
[2017-08-25] MEDS: AMLODIPINE BESYLATE 10 MG TABLET PO SCH (10:02)
[2017-08-25] MEDS: FAMOTIDINE 20 MG TABLET PO SCH (10:02)
[2017-08-25] MEDS: THIAMINE HCL 100 MG TABLET PO SCH (10:03)
[2017-08-25] MEDS: NICOTINE 21 MG/24 HR PATCH.TD24 TD SCH (10:03)
--- NOTE | 2017-08-25 12:16 | RADIOLOGY REPORT (SQ) ---
EXAM DESCRIPTION: CT CHEST WITH COMPLETED DATE/TIME: 08/25/2017 11:41 am REASON FOR STUDY: persistent air leak/ beebs COMPARISON: None. TECHNIQUE: CT scan of the chest performed using helical scanning technique with dynamic intravenous contrast injection. Images reviewed with lung, soft tissue and bone windows. Reconstructed coronal and sagittal MPR images reviewed. All images stored on PACS. All CT scanners at this facility use dose modulation, iterative reconstruction, and/or weight based d osing when appropriate to reduce radiation dose to as low as reasonably achievable (ALARA). [facility]: Dose Right [facility]: CareDose [facility]: Dose Right [facility]: Teradose 4D [facility]: Lendinero CONTRAST TYPE AND DOSE: contrast/concentration: Isovue 370.00 mg/ml; Total Contrast Delivered: 60.0 ml; Total Saline Delivered: 55.0 ml RENAL FUNCTION: GFR > 60. RADIATION DOSE: CT Rad equipment meets quality standard of care and radiation dose reduction techniq ues were employed. CTDIvol: 8.0 mGy. DLP: 339 mGy-cm. . LIMITATIONS: None. FINDINGS: LUNGS AND PLEURA: There is mild diffuse centrilobular and paraseptal emphysema with scatte red subpleural cysts involving the right greater than left lung. There is irregularity involving the pleura anteriorly at the lung base as seen on series 4, images 34-41 which may represent sequela to ruptured cyst and the etiology of pneumothorax. There is a small residual right-sided pneumothorax p resent with chest tube in place. There is calcification in evolving the left posterior pleural with adjacent pleural thickening likely sequela to prior infectious or inflammatory process. There is a s piculated lung mass within the left upper lobe with central cavitation seen on series 4, image 15 and series 601, image 39 measuring 1.6 x 1.5 x 2.4 cm concerning for malignancy. Lungs otherwise clear HILAR AND MEDIASTINAL STRUCTURES: No identified masses or abnormal nodes. HEART AND VASCULAR STRUCTURES: Atherosclerotic calcifications including coronary artery calcification s. No aneurysm or dissection. No central pulmonary emboli. No pericardial effusion. HARDWARE: Right-sided chest tube. UPPER ABDOMEN: Tiny low attenuating lesion right hepatic lobe too small to adequately characterize bu t statistically represents a benign cyst. No additional significant findings. Limited exam. THYROID AND OTHER SOFT TISSUES: No masses. No adenopathy. BONES: No significant finding. OTHER: No other significant finding. IMPRESSION: SMALL RESIDUAL RIGHT-SIDED PNEUMOTHORAX WITH CHEST TUBE IN PLACE. THERE ARE SUBPLEURAL CYSTS WITH IRREGULARITY INVOLVING THE ANTERIOR PLEURA NEAR THE BASE WHICH MAY REPRESENT SEQUELA TO A RUPTURED CYST AND COULD BE ETIOLOGY OF PRIOR PNEUMOTHORAX. 2.4 CM SPICULATED NODULE LEFT UPPER LOBE CONCERNING FOR MALIGNANCY. RECOMMEND PET-CT AND/OR LUNG BIO PSY. ADDITIONAL CHRONIC CHANGES ABOVE. TECHNICAL DOCUMENTATION: JOB ID: [id number] Quality ID # [id number]: Final reports with documentation of one or more dose reduction techniques (e.g., Au tomated exposure control, adjustment of the mA and/or kV according to patient size, use of iterative reconstruction technique) 2010 [employer]- All Rights Reserved
--- NOTE | 2017-08-25 13:16 | PDOC PROGRESS REPORT ---
Subjective Progress Note for:: 08/25/17 Subjective:: mild discomfort right chest tube site. Reason For Visit: RIGHT SPONTANEOUS TENSION PNEUMOTHORAX Physical Exam Vital Signs: Temp Pulse Resp BP Pulse Ox 97.5 F 88 16 131/67 H 97 08/25/17 07:01 08/25/17 08:14 08/25/17 08:14 08/25/17 07:01 08/25/17 08:14 Intake & Output 08/24/17 08/25/17 08/26/17 06:59 06:59 06:59 Intake Total 1472 2360 Output Total 1700 2850 50 Balance -228 -490 -50 Weight 58.5 kg 59.3 kg Exam: Persistent air leak despite good position of chest tube.Chest tube in place since 08/21/17. CXRay showed apical pneumothorax and subcu emphysema right chest. Results Laboratory Results: 08/24/17 05:49 08/24/17 05:49 Impressions: Chest X-Ray 08/25/17 07:00 IMPRESSION: 10% right apical pneumothorax. Chest CT 08/25/17 09:05 IMPRESSION: SMALL RESIDUAL RIGHT-SIDED PNEUMOTHORAX WITH CHEST TUBE IN PLACE. THERE ARE SUBPLEURAL CYSTS WITH IRREGULARITY INVOLVING THE ANTERIOR PLEURA NEAR THE BASE WHICH MAY REPRESENT SEQUELA TO A RUPTURED CYST AND COULD BE ETIOLOGY OF PRIOR PNEUMOTHORAX. 2.4 CM SPICULATED NODULE LEFT UPPER LOBE CONCERNING FOR MALIGNANCY. RECOMMEND PET-CT AND/OR LUNG BIOPSY. ADDITIONAL CHRONIC CHANGES ABOVE. Assessment & Plan - Time Time Spent with patient: 15-24 minutes - Plan Summary Plan Summary: Ct scan showed cysts in the lower lobe likely caused of the pneumothorax More interesting is a 2.4 cm spiculated lesion left chest suspicious for malignancy. In view of the persistent right chest tube airleak, pt may need a VATS procedure to stale the cysts and do pleurodesis. Suggest transferring him to [facility]. They can also addressed the lesion on the opposite left lung D/W Dr Coronel
--- NOTE | 2017-08-25 15:54 | PDOC TRANSFER SUMMARY ---
General Admission Date/PCP: 08/21/17 09:07 ARLEN GONZALEZ MD Admission Date: 08/21/17 Transfer Date: 08/25/17 Accepting Facility: [facility] Resuscitation Status: Full Code - Transfer Diagnosis (1) Spontaneous tension pneumothorax Is this a current diagnosis for this admission?: Yes Diagnosis Summary: Pt presented with complaint of acute shortness of breath. Pt was transported to the hospital where he was found to have a spontaneous tension pneumothorax. Pt had chest tube placed in the ER but Dr. Baker General Surgery had to place chest tube due to the sideholes being outside of the pt's body. Once Dr. Baker placed new chest tube positioning was correct. Pt was placed on ETOH withdrawal protocol but pt has done well. Pt was noted to have an air leak. CT of chest was done which demonstrated 10% Pneumothorax and Left 1.6 x 1.5 x 2.4 cm spiculated upper lobe node. (2) PAD (peripheral artery disease) Is this a current diagnosis for this admission?: Yes Diagnosis Summary: Supportive. (3) EtOH dependence Is this a current diagnosis for this admission?: Yes Diagnosis Summary: Patient was placed on Klonopin 1 mg PO Q8 hours with hold parameters for sedation. Pt has done well. Pt has been monitored by nursing for ETOH withdrawal. (4) Tobacco dependence Is this a current diagnosis for this admission?: Yes Diagnosis Summary: Encouraged pt to stop smoking. (5) Epistaxis Is this a current diagnosis for this admission?: Yes Diagnosis Summary: Resolved. (6) Moderate protein-calorie malnutrition Is this a current diagnosis for this admission?: Yes Diagnosis Summary: Will continue to encourage good PO intake. (7) Depression Is this a current diagnosis for this admission?: Yes Diagnosis Summary: Will continue Cymbalta. (8) Emphysema lung Is this a current diagnosis for this admission?: Yes Diagnosis Summary: Encouraged pt to stop smoking. (9) COPD (chronic obstructive pulmonary disease) Is this a current diagnosis for this admission?: Yes Diagnosis Summary: Will continue breathing treatments and space steroids to Q12. (10) Leukocytosis Is this a current diagnosis for this admission?: Yes Diagnosis Summary: Most likely secondary to Steroid: Will continue to monitor. (11) Hyponatremia Is this a current diagnosis for this admission?: Yes Diagnosis Summary: Improving. (12) History of DVT (deep vein thrombosis) Is this a current diagnosis for this admission?: Yes Diagnosis Summary: Pt has been on Pradaxa for 1 year per pt report due to history of DVT. Will hold praxada due to VATS and Lung Biopsy. - Transfer Medications Home Medications: Dabigatran Etexilate Mesylate [Pradaxa 150 mg Capsule] 150 mg PO Q12 08/21/17 Duloxetine HCl [Cymbalta] 60 mg PO DAILY 08/21/17 Gabapentin [Neurontin 100 mg Capsule] 100 mg PO Q6 08/21/17 Ipratropium/Albuterol Sulfate [Combivent Respimat Inhal [place]] 1 puff IH QAM 06/28 Transfer Medications: Current Medications Acetaminophen (Tylenol 325 Mg Tablet) 650 mg PO Q4HP PRN PRN Reason: MILD PAIN OR TEMP > 101 Stop: 09/20/17 09:55 Hydrocodone Bitart/Acetaminophen ([place] 5-325 Mg Tablet) 1 tab PO Q4HP PRN PRN Reason: MODERATE PAIN Stop: 08/29/17 13:08 Last Admin: 08/25/17 07:42 Dose: 1 tab Albuterol/Ipratropium (Duoneb 3 Ml Ampul) 3 ml NEB RTQ4HP PRN PRN Reason: WHEEZING/DYSPNEA Stop: 09/20/17 09:55 Albuterol/Ipratropium (Duoneb 3 Ml Ampul) 3 ml NEB RTQ8 KRISTY Stop: 09/23/17 15:59 Last Admin: 08/25/17 08:14 Dose: 3 ml Amlodipine Besylate (Norvasc 10 Mg Tablet) 10 mg PO DAILY KRISTY Stop: 09/22/17 09:59 Last Admin: 08/25/17 10:02 Dose: 10 mg Clonazepam (Klonopin 1 Mg Tablet) 1 mg PO Q8 KRISTY Stop: 08/29/17 13:59 Last Admin: 08/25/17 13:37 Dose: 1 mg Dabigatran (Pradaxa 150 Mg Capsule) 150 mg PO Q12 KRISTY Stop: 09/21/17 21:59 Last Admin: 08/25/17 10:00 Dose: 150 mg Duloxetine HCl (Cymbalta 30 Mg Capsule.Dr) 60 mg PO DAILY KRISTY Stop: 09/22/17 09:59 Last Admin: 08/25/17 10:02 Dose: 60 mg Famotidine (Pepcid 20 Mg Tablet) 20 mg PO Q12 KRISTY Stop: 09/20/17 09:59 Last Admin: 08/25/17 10:02 Dose: 20 mg Folic Acid (Folvite 1 Mg Tablet) 1 mg PO DAILY KRISTY Stop: 09/21/17 09:59 Last Admin: 08/25/17 10:00 Dose: 1 mg Gabapentin (Neurontin 100 Mg Capsule) 100 mg PO Q6 KRISTY Stop: 09/21/17 17:59 Last Admin: 08/25/17 13:37 Dose: 100 mg Influenza Virus Vaccine Quadrival (Fluzone Adlt Quad [id number] Vac 0.5 Ml Syr) 0.5 ml IM .DISCHARGE PRN PRN Reason: THIS MED IS NOT "PRN" Stop: 09/20/17 20:40 Lorazepam (Ativan Inj 2 Mg/1 Ml Vial) 2 mg IV Q2HP PRN PRN Reason: ANXIETY/AGITATION Stop: 08/28/17 10:26 Last Admin: 08/22/17 21:06 Dose: 2 mg Methylprednisolone Sodium Succinate (Solu-Medrol Inj/Pf 40 Mg/1 Ml Sdv) 40 mg IV Q8 KRISTY Stop: 09/21/17 13:59 Last Admin: 08/25/17 13:37 Dose: 40 mg Multivitamins (Tab-A-Myke (Multiple Vitamin) Tablet) 1 tab PO DAILY KRISTY Stop: 09/21/17 09:59 Last Admin: 08/25/17 10:02 Dose: 1 tab Nicotine (Nicoderm 21 Mg/24 Hr Transderm Patch) 1 each TD DAILY KRISTY Stop: 09/22/17 09:59 Last Admin: 08/25/17 10:03 Dose: 1 each Fluticasone/Salmeterol (Advair 250-50 Diskus 14 Dose/Diskus) 1 inh IH DAILY KRISTY Stop: 09/21/17 09:59 Last Admin: 08/25/17 10:00 Dose: 1 inh Simvastatin (Zocor 10 Mg Tablet) 20 mg PO QHS KRISTY Stop: 09/21/17 21:59 Last Admin: 08/24/17 21:53 Dose: 20 mg Thiamine HCl (Thiamine 100 Mg Tablet) 100 mg PO DAILY KRISTY Stop: 09/21/17 09:59 Last Admin: 08/25/17 10:03 Dose: 100 mg - Allergies Allergies/Adverse Reactions: No Known Allergies Allergy (Verified 08/15/16 12:16) Hospital Course Hospital Course: Pt is a 57 year old male with past medical history for DVT, COPD, Emphysema, and Alcoholism presented to the ER with acute shortness of breath. Pt was found to have a spontaneous tension pneumothorax. Pt had a chest tube placed in the ER which was replace by Dr. Baker. Pt was found to have an air leak. Surgery recommended transfer for VATS. Pt was placed on Klonopin 1mg Q8 with parameter to hold for sedation. Pt has done well during stay. Pt was treated to for COPD Exacerbation but breathing has improved. Steroids were spaced today 08/25/2017. Pt did present with Epistaxis but resolved. Pradaxa was held but restarted. Pradaxa was discontinue today on 08/25/2017 due to possible VATS and Lung Biopsy. Pt was found to have a 1.5X1.6X2.4 cm spiculated mass found to CT today. Spoke to Dr. Muniz who agreed to accept the pt. Physical Exam Vital Signs: Temp Pulse Resp BP Pulse Ox 97.5 F 88 16 131/67 H 97 08/25/17 07:01 08/25/17 08:14 08/25/17 08:14 08/25/17 07:01 08/25/17 08:14 Intake & Output 08/24/17 08/25/17 08/26/17 06:59 06:59 06:59 Intake Total 1472 2360 1054 Output Total 1700 2850 1025 Balance -228 -490 29 Weight 58.5 kg 59.3 kg General appearance: PRESENT: no acute distress, thin Head exam: PRESENT: atraumatic, normocephalic Eye exam: PRESENT: conjunctiva pink, EOMI. ABSENT: scleral icterus Ear exam: PRESENT: normal external ear exam Mouth exam: PRESENT: moist, tongue midline Neck exam: ABSENT: carotid bruit, JVD, lymphadenopathy, thyromegaly Respiratory exam: PRESENT: wheezes - +scant wheezing, + slight accessory muscle use, Pt on room air. Cardiovascular exam: PRESENT: RRR. ABSENT: diastolic murmur, rubs, systolic murmur GI/Abdominal exam: PRESENT: normal bowel sounds, soft. ABSENT: distended, guarding, mass, organolmegaly, rebound, tenderness Rectal exam: PRESENT: deferred Extremities exam: PRESENT: other - bilateral BKA. Neurological exam: PRESENT: alert, awake, oriented to person, oriented to place , oriented to time, oriented to situation, CN II-XII grossly intact. ABSENT: motor sensory deficit Psychiatric exam: PRESENT: appropriate affect, normal mood. ABSENT: homicidal ideation, suicidal ideation Skin exam: PRESENT: dry, intact, warm. ABSENT: cyanosis, rash Results Laboratory Results: 08/24/17 05:49 08/24/17 05:49 Impressions: Chest X-Ray 08/25/17 07:00 IMPRESSION: 10% right apical pneumothorax. Chest CT 08/25/17 09:05 IMPRESSION: SMALL RESIDUAL RIGHT-SIDED PNEUMOTHORAX WITH CHEST TUBE IN PLACE. THERE ARE SUBPLEURAL CYSTS WITH IRREGULARITY INVOLVING THE ANTERIOR PLEURA NEAR THE BASE WHICH MAY REPRESENT SEQUELA TO A RUPTURED CYST AND COULD BE ETIOLOGY OF PRIOR PNEUMOTHORAX. 2.4 CM SPICULATED NODULE LEFT UPPER LOBE CONCERNING FOR MALIGNANCY. RECOMMEND PET-CT AND/OR LUNG BIOPSY. ADDITIONAL CHRONIC CHANGES ABOVE. Plan Time Spent: Greater than 30 Minutes
[2017-08-25] MEDS ORDERED: DIGOXIN INJ 0.5 MG/2 ML AMPULE IV ONE (16:18)
[2017-08-25 16:24] VITALS: BP 128/67
[2017-08-25] MEDS ORDERED: METHYLPREDNISOLONE INJ 40 MG/1 ML SDV IV SCH (22:00)
== END 2017-08-25 18:36 | disposition short-term general hospital (02) | DRG 200 ==
LOC: ER 06:55 → EH 09:07 → 3W 17:26
PROVIDERS: ADMIT Emergency Medicine; ATTEND Emergency Medicine
PROC: 0W9900Z Drainage of Right Pleural Cavity with Drainage Device, Open Approach (ICD-10-PCS; principal; 2017-08-21)
DX: J93.0 Spontaneous tension pneumothorax (principal); E44.0 Moderate protein-calorie malnutrition; E87.1 Hypo-osmolality and hyponatremia; Z68.1 Body mass index [BMI] 19.9 or less, adult; R91.8 Other nonspecific abnormal finding of lung field; R04.0 Epistaxis; F10.20 Alcohol dependence, uncomplicated; F43.10 Post-traumatic stress disorder, unspecified; J43.9 Emphysema, unspecified; I73.1 Thromboangiitis obliterans [Buerger's disease]; I10 Essential (primary) hypertension; F32.9 Major depressive disorder, single episode, unspecified; Z79.899 Other long term (current) drug therapy; Z86.718 Personal history of other venous thrombosis and embolism; Z89.512 Acquired absence of left leg below knee; Z89.511 Acquired absence of right leg below knee; F17.200 Nicotine dependence, unspecified, uncomplicated
CPT/HCPCS: 36415; 71045; 71046; 71260; 80053; 80061; 82550; 82803; 82962; 83605; 83690; 83880; 84484; 85025; 85610; 85730; 93005; 93010; 94640; 94660; 99291; J2060; J2250; J2310; J2920; J3010; J3490; J7620

== ENCOUNTER → 2018-01-11 | Outpatient (CLI) | payer OTHER ==
--- NOTE | 2018-01-12 10:19 | RADIOLOGY REPORT (SQ) ---
EXAM DESCRIPTION: PET CT SKULL/THIGH COMPLETED DATE/TIME: 01/11/2018 8:19 pm REASON FOR STUDY: ABNORMAL FINDINGS OF LUNG FIELD R91.8 OTHER NONSPECIFIC ABNORMAL FINDING OF LUNG FIELD J98.4 OTHER DISORDERS OF LUNG COMPARISON: CT chest dated 08/25/2017. RADIONUCLIDE AND DOSE: 10.0 mCi F18 FDG The route of agent administration: Intravenous FASTING BLOOD SUGAR: 89 mg/dl CONTRAST TYPE AND DOSE: No CT contrast given. TECHNIQUE: Blood glucose level was verified. Above dose of FDG was injected intravenously. 2-D seg mented attenuation correction images were obtained from the base of the skull to the midthighs. Nonc ontrast CT images were obtained for attenuation correction and fusion with emission images. CT image s were performed without oral or intravenous contrast and are not sensitive for parenchymal lesions. A series of overlapping emission PET images were obtained. Images reviewed and manipulated at [facility] work station by the radiologist. Images stored on PACS. LIMITATIONS: None. FINDINGS: HEAD AND NECK: No areas of abnormal metabolic activity in the soft tissues of the head and neck. CHEST: Irregular mass in the left upper lobe which contacts the pleural surface laterally. 1.4 x 2.5 cm. Mean SUV 5.09. Mild pleural thickening with dense pleural calcifications in the left base. No other abnormal findings in the chest. ABDOMEN AND PELVIS: No areas of abnormal metabolic activity in the abdomen or pelvis. Expected physi ologic activity is present in the genitourinary system and bowel. PROXIMAL LOWER EXTREMITIES: No areas of abnormal metabolic activity in the soft tissues of the lower extremities. BONES: No abnormal metabolic activity in the visualized skeleton. ADDITIONAL CT FINDINGS: Mucous membrane thickening in the left maxillary sinus. Atherosclerosis with stent in the left external iliac artery. No other additional significant findings on the noncontras t CT images. OTHER: Background liver activity mean SUV 2.06. Background blood pool activity mean SUV 1.35. No ot her significant findings. IMPRESSION: 1. IRREGULAR MASS IN THE LEFT UPPER LOBE WITH INCREASED ACTIVITY, MOST CONSISTENT WITH MALIGNANCY. N O OTHER ABNORMAL FINDINGS ON PET IMAGING. 2. PLEURAL THICKENING WITH COARSE PLEURAL CALCIFICATIONS IN THE LEFT LUNG BASE. ATHEROSCLEROSIS WITH LEFT EXTERNAL ILIAC ARTERY STENT. TECHNICAL DOCUMENTATION: JOB ID: [id number] [employer]- All Rights Reserved Reading location - IP/workstation name: [email or web address]
== END ==
LOC: RAD 17:52
PROVIDERS: ATTEND Internal Medicine Pulmonary Disease
DX: R91.1 Solitary pulmonary nodule (principal); J98.4 Other disorders of lung
CPT/HCPCS: 78815; A9552

== ENCOUNTER 2019-05-31 13:53 | Inpatient (IN) | payer MEDICAID, OTHER ==
[2019-05-31 14:25] LABS: ABSOLUTE BASOPHILS # (AUTO) 0.1 10^3/uL (0.0-0.2); ABSOLUTE EOSINOPHILS # (AUTO) 0.1 10^3/uL (0.0-0.6); ABSOLUTE LYMPHOCYTES (AUTO) 1.1 10^3/uL (0.5-4.7); ABSOLUTE MONOCYTES (AUTO) 0.3 10^3/uL (0.1-1.4); ABSOLUTE NEUT (AUTO) 6.9 10^3/uL (1.7-8.2); BASOPHILS % (AUTO) 0.9 % (0-2); HEMATOCRIT 32.4 % (37.9-51.0); HEMOGLOBIN 10.7 g/dL (13.5-17.0); LYMPHOCYTES % (AUTO) 13.2 % (13-45); MEAN CORPUSCULAR HEMOGLOBIN 29.1 pg (27.0-33.4); MEAN CORPUSCULAR HGB CONC 33.1 g/dL (32.0-36.0); MEAN CORPUSCULAR VOLUME 88 fl (80-97); MONOCYTES % (AUTO) 3.3 % (3-13); PLATELET COUNT 365 10^3/uL (150-450); RED BLOOD COUNT 3.68 10^6/uL (4.35-5.55); RED CELL DISTRIBUTION WIDTH 15.4 % (11.5-14.0); SEGMENTED NEUTROPHILS % (AUTO) 81.6 % (42-78); TOTAL CELLS COUNTED % (AUTO) 100 %; WHITE BLOOD COUNT 8.4 10^3/uL (4.0-10.5)
[2019-05-31 14:37] LABS: INTERNATIONAL RATION (INR) 1.08
[2019-05-31 14:42] LABS: VENOUS BLOOD BASE EXCESS -3.2 mmol/L; VENOUS BLOOD HCO3 21.8 mmol/L (20-32); VENOUS BLOOD PCO2 39.2 mmHg (35-63); VENOUS BLOOD PH 7.36 (7.30-7.42)
[2019-05-31 14:45] LABS: ALBUMIN 2.9 g/dL (3.5-5.0); ALKALINE PHOSPHATASE 165 U/L (38-126); ANION GAP 11 (5-19); ASPARTATE AMINO TRANSFERASE 58 U/L (17-59); BILIRUBIN,DIRECT 0.3 mg/dL (0.0-0.4); BILIRUBIN,TOTAL 0.6 mg/dL (0.2-1.3); BLOOD UREA NITROGEN 9 mg/dL (7-20); CALCIUM 8.4 mg/dL (8.4-10.2); CARBON DIOXIDE 21 mmol/L (22-30); CHLORIDE 99 mmol/L (98-107); GLUCOSE 75 mg/dL (75-110); POTASSIUM 3.7 mmol/L (3.6-5.0); TOTAL PROTEIN 6.4 g/dL (6.3-8.2)
--- NOTE | 2019-05-31 14:46 | RADIOLOGY REPORT (SQ) ---
EXAM DESCRIPTION: CHEST SINGLE VIEW COMPLETED DATE/TIME: 05/31/2019 2:34 pm REASON FOR STUDY: cp COMPARISON: PET-CT dated 01/11/2018. EXAM PARAMETERS: NUMBER OF VIEWS: One view. TECHNIQUE: Single frontal radiographic view of the chest acquired. RADIATION DOSE: NA LIMITATIONS: None. FINDINGS: LUNGS AND PLEURA: Large left upper lobe mass with pleural thickening. Volume loss on the left. Lungs otherwise clear. MEDIASTINUM AND HILAR STRUCTURES: No masses. Contour normal. HEART AND VASCULAR STRUCTURES: Heart normal in size. Normal vasculature. BONES: No acute findings. HARDWARE: None in the chest. OTHER: No other significant finding. IMPRESSION: LARGE LEFT UPPER LOBE MASS WHICH HAS INCREASED IN SIZE SINCE THE PRIOR CT. OTHERWISE NO ACUTE FINDINGS. TECHNICAL DOCUMENTATION: JOB ID: [id number] [employer]- All Rights Reserved Reading location - IP/workstation name: [email or web address]
[2019-05-31 15:18] LABS: APPEARANCE,URINE SLIGHTLY-CLOUDY; BILIRUBIN,URINE NEGATIVE (NEGATIVE); COLOR,URINE AMBER; GLUCOSE, URINE NEGATIVE (NEGATIVE); KETONES,URINE NEGATIVE (NEGATIVE); PROTEIN,URINE 100 mg/dL (NEGATIVE); URINE SPECIFIC GRAVITY 1.018
[2019-05-31] MEDS ORDERED: CEFTRIAXONE 1 GM/D5W RTU 1 GM/50 ML RTUPB IV ONE (17:19)
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
[2019-05-31] MEDS ORDERED: ACETAMINOPHEN 325 MG TABLET PO PRN (18:02)
[2019-05-31] MEDS ORDERED: MAGNESIUM HYDROXIDE SUSP 30 ML UDCUP PO PRN (18:02)
[2019-05-31] MEDS ORDERED: OXYCODONE-ACETAMINOPHEN 5-325 MG TABLET PO PRN (18:02)
[2019-05-31] MEDS ORDERED: PROMETHAZINE HCL INJ 25 MG/1 ML VIAL IV PRN (18:02)
[2019-05-31] MEDS ORDERED: ZOLPIDEM TARTRATE 5 MG TABLET PO PRN (18:02)
--- NOTE | 2019-05-31 18:46 | RADIOLOGY REPORT (SQ) ---
EXAM DESCRIPTION: CT ABD/PELVIS NO ORAL OR IV COMPLETED DATE/TIME: 05/31/2019 6:30 pm REASON FOR STUDY: lower abd pain COMPARISON: 01/11/2018 PET-CT. TECHNIQUE: CT scan of the abdomen and pelvis performed without intravenous or oral contrast. Images reviewed with lung, soft tissue, and bone windows. Reconstructed coronal and sagittal MPR images revi ewed. All images stored on PACS. All CT scanners at this facility use dose modulation, iterative reconstruction, and/or weight based d osing when appropriate to reduce radiation dose to as low as reasonably achievable (ALARA). [facility]: Dose Right [facility]: CareDose [facility]: Dose Right [facility]: Teradose 4D [facility]: Smart [employer] RADIATION DOSE: CT Rad equipment meets quality standard of care and radiation dose reduction techniq ues were employed. CTDIvol: 6.0 mGy. DLP: 335 mGy-cm.mGy. LIMITATIONS: None. FINDINGS: LOWER CHEST: Pleural thickening in the left base with dense calcifications. Mild tree-in- bud opacification in the left lower lobe. NON-CONTRASTED LIVER, SPLEEN, ADRENALS: Evaluation limited by lack of IV contrast. No identified sign ificant masses. PANCREAS: No masses. No peripancreatic inflammatory changes. GALLBLADDER: Not identified. RIGHT KIDNEY AND URETER: No suspicious masses. Assessment limited by lack of IV contrast. No signif icant calcifications. No hydronephrosis or hydroureter. LEFT KIDNEY AND URETER: No suspicious masses. Assessment limited by lack of IV contrast. There is s cattered tiny nonobstructing intrarenal calculi. These may be vascular. No hydronephrosis or hydro ureter. AORTA AND RETROPERITONEUM: No aneurysm. No retroperitoneal masses or adenopathy. BOWEL AND PERITONEAL CAVITY: No obvious masses or inflammatory changes. No free fluid. APPENDIX: Normal. PELVIS, BLADDER, AND ABDOMINAL WALL:A Wisdom catheter is present in the urinary bladder. There is pia e air in the bladder likely secondary to the catheterization procedure. There is no abnormal pelvic mass or fluid collection. BONES: No significant findings. OTHER: No other significant finding. IMPRESSION: 1. Left pleural thickening with dense pleural calcifications. 2. Tree-in-bud opacification in the left lower lobe may indicate inflammatory process. 3. No acute findings are seen in the abdomen or pelvis. COMMENT: Quality ID # [id number]: Final reports with documentation of one or more dose reduction techniques (e.g., Automated exposure control, adjustment of the mA and/or kV according to patient size, use of iterative reconstruction technique) TECHNICAL DOCUMENTATION: JOB ID: [id number] [employer]- All Rights Reserved Reading location - IP/workstation name: [email or web address]
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
[2019-05-31] MEDS: NORMAL SALINE 1000 ML 1,000 ML IV PRN (20:35)
[2019-05-31] MEDS: NICOTINE 21 MG/24 HR PATCH.TD24 TD SCH (21:15)
[2019-05-31] MEDS: METOCLOPRAMIDE HCL 10 MG TABLET PO SCH (21:15)
[2019-05-31] MEDS: ENOXAPARIN SODIUM INJ 40 MG/0.4 ML DISP.SYRIN SUBCUT SCH (21:15)
[2019-05-31] MEDS: FAMOTIDINE 20 MG TABLET PO SCH (21:15)
[2019-05-31] MEDS: NYSTATIN CREAM 15 GM TP SCH (21:16)
[2019-06-01] MEDS: LORAZEPAM 1 MG TABLET PO SCH ×4 (05:33→17:06)
[2019-06-01] MEDS: NORMAL SALINE 1000 ML 1,000 ML IV PRN ×2 (05:58→17:12)
[2019-06-01 06:27] LABS: ABSOLUTE BASOPHILS # (AUTO) 0.1 10^3/uL (0.0-0.2); ABSOLUTE EOSINOPHILS # (AUTO) 0.1 10^3/uL (0.0-0.6); ABSOLUTE LYMPHOCYTES (AUTO) 1.6 10^3/uL (0.5-4.7); ABSOLUTE MONOCYTES (AUTO) 0.5 10^3/uL (0.1-1.4); ABSOLUTE NEUT (AUTO) 6.2 10^3/uL (1.7-8.2); BASOPHILS % (AUTO) 0.9 % (0-2); EOSINOPHILS % (AUTO) 1.6 % (0-6); HEMATOCRIT 27.1 % (37.9-51.0); LYMPHOCYTES % (AUTO) 18.4 % (13-45); MEAN CORPUSCULAR HEMOGLOBIN 29.5 pg (27.0-33.4); MEAN CORPUSCULAR HGB CONC 33.4 g/dL (32.0-36.0); MEAN CORPUSCULAR VOLUME 89 fl (80-97); MONOCYTES % (AUTO) 6.3 % (3-13); PLATELET COUNT 287 10^3/uL (150-450); RED BLOOD COUNT 3.07 10^6/uL (4.35-5.55); RED CELL DISTRIBUTION WIDTH 15.4 % (11.5-14.0); SEGMENTED NEUTROPHILS % (AUTO) 72.8 % (42-78); TOTAL CELLS COUNTED % (AUTO) 100 %; WHITE BLOOD COUNT 8.5 10^3/uL (4.0-10.5)
[2019-06-01 06:47] LABS: ANION GAP 7 (5-19); BLOOD UREA NITROGEN 9 mg/dL (7-20); CALCIUM 7.5 mg/dL (8.4-10.2); CARBON DIOXIDE 19 mmol/L (22-30); CHLORIDE 106 mmol/L (98-107); GLUCOSE 82 mg/dL (75-110); POTASSIUM 3.6 mmol/L (3.6-5.0)
[2019-06-01] MEDS ORDERED: INFLUENZA QUAD (6MOS+) 2019-20 VAC 0.5 ML SYR IM ONE (08:00)
[2019-06-01] MEDS: METOCLOPRAMIDE HCL 10 MG TABLET PO SCH ×4 (09:24→21:32)
[2019-06-01] MEDS: ENOXAPARIN SODIUM INJ 40 MG/0.4 ML DISP.SYRIN SUBCUT SCH (09:24)
[2019-06-01] MEDS: FAMOTIDINE 20 MG TABLET PO SCH ×2 (09:24→21:33)
[2019-06-01] MEDS: NICOTINE 21 MG/24 HR PATCH.TD24 TD SCH (09:25)
[2019-06-01] MEDS: NYSTATIN CREAM 15 GM TP SCH ×2 (09:26→17:08)
--- NOTE | 2019-06-01 09:28 | EKG REPORT ---
SEVERITY:- ABNORMAL ECG - SINUS RHYTHM CONSIDER LEFT VENTRICULAR HYPERTROPHY ANTERIOR Q WAVES, POSSIBLY DUE TO LVH BORDERLINE T ABNORMALITIES, INFERIOR LEADS BORDERLINE PROLONGED QT INTERVAL : Confirmed by: Dot Vera MD 01-Jun-2019 09:27:33
[2019-06-01] MEDS: IPRATROPIUM/ALBUTEROL 0.5-2.5 MG/3 ML AMPUL NEB PRN ×2 (13:05→21:13)
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
[2019-06-01] MEDS ORDERED: CEFTRIAXONE 1 GM/D5W RTU 1 GM/50 ML RTUPB IV SCH (18:00)
[2019-06-02 02:04] VITALS: BP 122/53
--- NOTE | 2019-06-03 08:26 | Left Against Medical Advice ---
Against Medical Advice Admission Date/Time: 05/31/19 17:50 Primary Care Provider: Date of Patient Emigration: 06/01/19 - Diagnosis: (1) EtOH dependence Is this a current diagnosis for this admission?: Yes (2) Lung mass Is this a current diagnosis for this admission?: Yes (3) Moderate protein-calorie malnutrition Is this a current diagnosis for this admission?: Yes (5) Stage I decubitus ulcer and pressure area Is this a current diagnosis for this admission?: Yes (6) Tobacco dependence Is this a current diagnosis for this admission?: Yes (7) UTI (urinary tract infection) Is this a current diagnosis for this admission?: Yes - Summary: Summary: Please see Admission and Progress Notes as well. JACKIE MENEZES is a 59 M, who LEFT AGAINST MEDICAL ADVICE. The Patient was admitted on 05/31/19 17:50.
== END 2019-06-01 22:00 | disposition left against medical advice (07) | DRG 690 ==
LOC: ER 13:53 → EH 17:50 → 4S 19:54
PROVIDERS: ADMIT Internal Medicine; ATTEND Internal Medicine
DX: N30.01 Acute cystitis with hematuria (principal); E44.0 Moderate protein-calorie malnutrition; J44.1 Chronic obstructive pulmonary disease with (acute) exacerbation; F10.20 Alcohol dependence, uncomplicated; F17.210 Nicotine dependence, cigarettes, uncomplicated; R91.8 Other nonspecific abnormal finding of lung field; I73.9 Peripheral vascular disease, unspecified; I10 Essential (primary) hypertension; F32.9 Major depressive disorder, single episode, unspecified; F43.10 Post-traumatic stress disorder, unspecified; L89.311 Pressure ulcer of right buttock, stage 1; Z89.512 Acquired absence of left leg below knee; Z89.511 Acquired absence of right leg below knee; Z79.899 Other long term (current) drug therapy; Z23 Encounter for immunization; Z79.1 Long term (current) use of non-steroidal anti-inflammatories (NSAID); Z79.51 Long term (current) use of inhaled steroids
CPT/HCPCS: 36415; 51702; 71045; 74176; 80048; 80053; 81001; 82550; 82803; 82962; 83605; 83735; 83880; 84484; 85025; 85610; 87040; 87086; 93005; 93010; 99285; J0696; J1650; J3490; J7030; J7620

== ENCOUNTER 2019-07-03 11:20 | Inpatient (IN) | payer OTHER ==
[2019-07-03] MEDS ORDERED: PROPOFOL 1,000 MG/100 ML INFUS..BTL IV PRN ×2 (11:44→13:20)
[2019-07-03] MEDS ORDERED: NORMAL SALINE 1000 ML 1,000 ML IV ONE (11:45)
[2019-07-03] MEDS ORDERED: PROPOFOL 1,000 MG/100 ML INFUS..BTL IV ONE (11:46)
[2019-07-03] MEDS ORDERED: IPRATROPIUM/ALBUTEROL 0.5-2.5 MG/3 ML AMPUL NEB ONE (11:50)
[2019-07-03] MEDS ORDERED: CEFTRIAXONE 1 GM/D5W RTU 1 GM/50 ML RTUPB IV ONE (12:06)
[2019-07-03] MEDS ORDERED: AZITHROMYCIN INJ 500 MG VIAL IV ONE (12:06)
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
[2019-07-03 12:23] LABS: APPEARANCE,URINE SLIGHTLY-CLOUDY; BILIRUBIN,URINE NEGATIVE (NEGATIVE); COLOR,URINE YELLOW; GLUCOSE, URINE NEGATIVE (NEGATIVE); KETONES,URINE NEGATIVE (NEGATIVE); LEUKOCYTE ESTERASE,URINE TRACE (NEGATIVE); NITRITE,URINE NEGATIVE (NEGATIVE); PROTEIN,URINE 30 mg/dL (NEGATIVE); URINE SPECIFIC GRAVITY 1.021
[2019-07-03] MEDS ORDERED: EPINEPHRINE INJ 1 MG/10 ML DISP.SYRIN IV ONE (12:27)
[2019-07-03] MEDS ORDERED: RINGERS SOLUTION,LACTATED 1,000 ML IV PRN (12:30)
[2019-07-03 12:31] LABS: ABSOLUTE BASOPHILS # (AUTO) 0.2 10^3/uL (0.0-0.2); ABSOLUTE LYMPHOCYTES (AUTO) 1.1 10^3/uL (0.5-4.7); ABSOLUTE MONOCYTES (AUTO) 0.6 10^3/uL (0.1-1.4); ABSOLUTE NEUT (AUTO) 10.1 10^3/uL (1.7-8.2); BASOPHILS % (AUTO) 1.5 % (0-2); EOSINOPHILS % (AUTO) 0.2 % (0-6); HEMATOCRIT 25.5 % (37.9-51.0); HEMOGLOBIN 8.2 g/dL (13.5-17.0); LYMPHOCYTES % (AUTO) 9.4 % (13-45); MEAN CORPUSCULAR HEMOGLOBIN 30.1 pg (27.0-33.4); MEAN CORPUSCULAR HGB CONC 32.2 g/dL (32.0-36.0); MEAN CORPUSCULAR VOLUME 94 fl (80-97); MONOCYTES % (AUTO) 4.6 % (3-13); PLATELET COUNT 708 10^3/uL (150-450); RED BLOOD COUNT 2.73 10^6/uL (4.35-5.55); RED CELL DISTRIBUTION WIDTH 19.1 % (11.5-14.0); SEGMENTED NEUTROPHILS % (AUTO) 84.3 % (42-78); TOTAL CELLS COUNTED % (AUTO) 100 %
[2019-07-03 12:39] LABS: ALBUMIN 2.6 g/dL (3.5-5.0); ALKALINE PHOSPHATASE 134 U/L (38-126); ANION GAP 8 (5-19); ASPARTATE AMINO TRANSFERASE 32 U/L (17-59); BILIRUBIN,DIRECT 0.2 mg/dL (0.0-0.4); BILIRUBIN,TOTAL 0.2 mg/dL (0.2-1.3); BLOOD UREA NITROGEN 15 mg/dL (7-20); CALCIUM 8.5 mg/dL (8.4-10.2); CARBON DIOXIDE 25 mmol/L (22-30); CHLORIDE 108 mmol/L (98-107); CREATINE KINASE 79 U/L (55-170); GLUCOSE 120 mg/dL (75-110); POTASSIUM 4.7 mmol/L (3.6-5.0); TOTAL PROTEIN 6.1 g/dL (6.3-8.2)
[2019-07-03 12:46] LABS: PHOSPHORUS 4.8 mg/dL (2.5-4.5)
--- NOTE | 2019-07-03 12:51 | RADIOLOGY REPORT (SQ) ---
EXAM DESCRIPTION: CHEST SINGLE VIEW COMPLETED DATE/TIME: 07/03/2019 12:17 pm REASON FOR STUDY: Post intubation COMPARISON: 05/31/2019 NUMBER OF VIEWS: One view. TECHNIQUE: Single frontal radiographic image of the chest acquired. LIMITATIONS: None. FINDINGS: LUNGS AND PLEURA: Known large left upper lobe mass. Dense consolidation in the remainder of the left lung and in the right lower lobe. No pneumothorax. MEDIASTINUM AND HILAR STRUCTURES: Stable heart size and mediastinal structures. HEART AND VASCULAR STRUCTURES: Stable appearance. SUPPORT DEVICES: Appropriate position of endotracheal and nasogastric tubes. BONES: No acute findings. OTHER: No other significant finding. IMPRESSION: Good position of support apparatus. No pneumothorax. TECHNICAL DOCUMENTATION: JOB ID: [id number] [employer]- All Rights Reserved Reading location - IP/workstation name: [email or web address]
[2019-07-03 12:52] LABS: INTERNATIONAL RATION (INR) 1.19; PROTHROMBIN TIME 15.2 SEC (11.4-15.4)
[2019-07-03 12:53] LABS: PARTIAL THROMBOPLASTIN TIME 34.1 SEC (23.5-35.8)
[2019-07-03 13:41] LABS: URINE AMPHETAMINES SCREEN NEGATIVE; URINE BARBITURATES SCREEN NEGATIVE; URINE BENZODIAZEPINES SCREEN UNCONFIRMED POSITIVE; URINE COCAINE SCREEN NEGATIVE; URINE MARIJUANA (THC) SCREEN UNCONFIRMED POSITIVE; URINE METHADONE SCREEN NEGATIVE; URINE PHENCYCLIDINE SCREEN NEGATIVE
[2019-07-03 14:24] LABS: ARTERIAL BLOOD BASE EXCESS -7.3 mmol/L; ARTERIAL BLOOD FIO2 100%; ARTERIAL BLOOD H2CO3 1.99 mmol/L (1.05-1.35); ARTERIAL BLOOD O2 SATURATION 99.8 % (94-98); ARTERIAL BLOOD PCO2 66.2 mmHg (35-45); ARTERIAL BLOOD PO2 470.6 mmHg (80-100); ARTERIAL BLOOD TOTAL CO2 24.1 mmol/L (23-27)
[2019-07-03 14:25] LABS: ARTERIAL BLOOD PH 7.14 (7.35-7.45)
[2019-07-03] MEDS ORDERED: ALBUTEROL SULFATE 0.083% NEB 2.5 MG/3 ML AMPUL NEB PRN (15:29)
[2019-07-03] MEDS ORDERED: METHYLPREDNISOLONE INJ 125 MG/2 ML SDV IV ONE (15:30)
[2019-07-03] MEDS ORDERED: EPINEPHRINE INJ 1 MG/10 ML DISP.SYRIN ONE (15:59)
[2019-07-03 16:13] LABS: ARTERIAL BLOOD BASE EXCESS -3.9 mmol/L; ARTERIAL BLOOD H2CO3 1.41 mmol/L (1.05-1.35); ARTERIAL BLOOD HCO3 22.5 mmol/L (20-24); ARTERIAL BLOOD PCO2 46.9 mmHg (35-45); ARTERIAL BLOOD PO2 54.7 mmHg (80-100); ARTERIAL BLOOD TOTAL CO2 23.9 mmol/L (23-27)
[2019-07-03] MEDS ORDERED: INFLUENZA QUAD (6MOS+) 2019-20 VAC 0.5 ML SYR IM ONE (16:14)
[2019-07-03 16:17] LABS: ARTERIAL BLOOD FIO2 80%
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
[2019-07-03] MEDS: HEPARIN SOD (PORCINE) 5,000 UNIT/ML 1 ML VIAL SUBCUT SCH ×2 (17:10→21:06)
[2019-07-03] MEDS: FOLIC ACID 1 MG TABLET PO SCH (17:12)
[2019-07-03] MEDS: THIAMINE HCL 500 MG in NORMAL SALINE 250 ML IV SCH (17:12)
[2019-07-03] MEDS: IPRATROPIUM/ALBUTEROL 0.5-2.5 MG/3 ML AMPUL NEB SCH ×2 (17:19→20:54)
--- NOTE | 2019-07-03 17:39 | EKG REPORT ---
SEVERITY:- ABNORMAL ECG - POSSIBLE ATRIAL ARRHYTHMIA, A-RATE 140 BORDERLINE T ABNORMALITIES, ANT-LAT LEADS BORDERLINE PROLONGED QT INTERVAL : Confirmed by: Yfn Copeland MD 03-Jul-2019 17:38:06
[2019-07-03] MEDS ORDERED: ALBUMIN HUMAN 500 ML IV ONE ×2 (18:58→20:22)
[2019-07-03] MEDS ORDERED: DEXMEDETOMIDINE IN 0.9 % NACL 400 MCG/100 ML RTUPB IV ONE (19:27)
[2019-07-03] MEDS: DEXMEDETOMIDINE IN 0.9 % NACL 400 MCG/100 ML RTUPB IV PRN ×2 (19:30→23:33)
[2019-07-03] MEDS: RINGERS SOLUTION,LACTATED 1,000 ML IV PRN ×2 (19:54→23:33)
[2019-07-03] MEDS ORDERED: RINGERS SOLUTION,LACTATED 1,000 ML IV ONE (20:41)
[2019-07-03] MEDS: METHYLPREDNISOLONE INJ 40 MG/1 ML SDV IV SCH (21:06)
[2019-07-03] MEDS ORDERED: FENTANYL CITRATE INJ/PF 100 MCG/2 ML AMPUL ONE (22:20)
[2019-07-03] MEDS: FENTANYL CITRATE/PF 600 MCG/60 ML BAG IV PRN (22:35)
[2019-07-03] MEDS ORDERED: FENTANYL CITRATE INJ/PF 100 MCG/2 ML AMPUL IV ONE (22:45)
[2019-07-04] MEDS: IPRATROPIUM/ALBUTEROL 0.5-2.5 MG/3 ML AMPUL NEB SCH ×7 (00:46→23:43)
[2019-07-04] MEDS: FENTANYL CITRATE/PF 600 MCG/60 ML BAG IV PRN ×4 (02:15→14:35)
[2019-07-04] MEDS ORDERED: MIDAZOLAM HCL 50 MG/100 ML RTUINJ IV PRN (02:38)
[2019-07-04] MEDS ORDERED: MIDAZOLAM 2 MG/2 ML INJ IV ONE (02:39)
[2019-07-04] MEDS ORDERED: MIDAZOLAM 2 MG/2 ML INJ ONE (02:42)
[2019-07-04 05:47] LABS: HEMATOCRIT 20.5 % (37.9-51.0); MEAN CORPUSCULAR HEMOGLOBIN 29.5 pg (27.0-33.4); MEAN CORPUSCULAR HGB CONC 32.2 g/dL (32.0-36.0); MEAN CORPUSCULAR VOLUME 92 fl (80-97); PLATELET COUNT 568 10^3/uL (150-450); RED BLOOD COUNT 2.24 10^6/uL (4.35-5.55); RED CELL DISTRIBUTION WIDTH 18.2 % (11.5-14.0); WHITE BLOOD COUNT 11.1 10^3/uL (4.0-10.5)
[2019-07-04 05:54] LABS: HEMOGLOBIN 6.6 g/dL (13.5-17.0)
[2019-07-04] MEDS: RINGERS SOLUTION,LACTATED 1,000 ML IV PRN (06:01)
[2019-07-04] MEDS: DEXMEDETOMIDINE IN 0.9 % NACL 400 MCG/100 ML RTUPB IV PRN ×5 (06:01→20:43)
[2019-07-04] MEDS: HEPARIN SOD (PORCINE) 5,000 UNIT/ML 1 ML VIAL SUBCUT SCH ×3 (06:02→21:55)
[2019-07-04] MEDS ORDERED: FENTANYL CITRATE INJ/PF 100 MCG/2 ML AMPUL ONE (06:08)
[2019-07-04 06:09] LABS: ANION GAP 11 (5-19); BLOOD UREA NITROGEN 15 mg/dL (7-20); CALCIUM 8.3 mg/dL (8.4-10.2); CARBON DIOXIDE 17 mmol/L (22-30); CHLORIDE 112 mmol/L (98-107); CHOLESTEROL 143.76 mg/dL (0-200); GLUCOSE 143 mg/dL (75-110); POTASSIUM 5.2 mmol/L (3.6-5.0); TRIGLYCERIDES 102 mg/dL (<150)
[2019-07-04 06:19] LABS: DIRECT LDL 123 mg/dL (<100)
[2019-07-04 06:35] LABS: ABSOLUTE LYMPHOCYTES# (MANUAL) 0.4 10^3/uL (0.5-4.7); ABSOLUTE MONOCYTES # (MANUAL) 0.1 10^3/uL (0.1-1.4); ANISOCYTOSIS 2+; BAND NEUTROPHILS % (MANUAL) 2 % (3-5); BASOPHILS % (MANUAL) 0 % (0-2); EOSINOPHILS % (MANUAL) 0 % (0-6); LYMPHOCYTES % (MANUAL) 4 % (13-45); MONOCYTES % (MANUAL) 1 % (3-13); PLATELET COMMENT INCREASED; SEGMENTED NEUTROPHILS % (MAN) 93 % (42-78); TOTAL CELLS COUNTED 100
[2019-07-04 08:29] LABS: ARTERIAL BLOOD BASE EXCESS -5.2 mmol/L; ARTERIAL BLOOD H2CO3 1.11 mmol/L (1.05-1.35); ARTERIAL BLOOD HCO3 19.9 mmol/L (20-24); ARTERIAL BLOOD PCO2 36.8 mmHg (35-45); ARTERIAL BLOOD PH 7.35 (7.35-7.45); ARTERIAL BLOOD PO2 84.3 mmHg (80-100)
[2019-07-04 08:30] LABS: ARTERIAL BLOOD FIO2 40%
--- NOTE | 2019-07-04 09:55 | RADIOLOGY REPORT (SQ) ---
EXAM DESCRIPTION: CHEST SINGLE VIEW COMPLETED DATE/TIME: 07/04/2019 6:20 am REASON FOR STUDY: respiratory failure COMPARISON: 07/03/2019 NUMBER OF VIEWS: One view. TECHNIQUE: Single frontal radiographic image of the chest acquired. LIMITATIONS: None. FINDINGS: LUNGS AND PLEURA: Known large left upper lobe mass. Extensive airspace disease in the rem ainder of the left lung. Improved aeration in the right lung. No pneumothorax. MEDIASTINUM AND HEART: Stable heart size and mediastinal structures. SUPPORT DEVICES: Appropriate location without change. BONY STRUCTURES: No acute findings. HARDWARE: None. OTHER: No other significant finding. IMPRESSION: Improved aeration in the right lung. No pneumothorax. Reading location - IP/workstation name: [email or web address]
[2019-07-04] MEDS ORDERED: CEFTRIAXONE SODIUM 2,000 MG in DEXTROSE 5%-WATER 100 ML IV SCH (10:00)
--- NOTE | 2019-07-04 10:27 | Operative Report ---
Bedside Procedure - History of Present Illness History of Present Illness: 59-year-old white male with severe peripheral vascular disease culminating in the removal of both lower extremities above the knee presented with the below: Brought to emergency room by EMS with altered mental status. Initial blood pressure of 70/30 with a heart rate of 87 and a pulse ox of 99% on oxygen with elevated respiratory rate between 30 and 40. He was given a DuoNeb treatment. He was in extremis and moribund. Developed an atrial arrhythmia with reduction in heart rate of 57, he quickly became extremely bradycardic with a rate of 30 or less, and became apneic. [id number] and chest compression resuscitation was started. He was intubated with a 7.5 ET tube without medications. He was given epinephrine 1 mg IV and his heart rate came up above 100 and he had a very strong carotid pulse. He was placed on propofol drip after intubation. Post intubation chest x-ray shows a known large left upper lobe mass, with a new diffuse lower lobe infiltrate. He did have thick yellow sputum come up the endotracheal tube. Procedure Pre-operative diagnosis/indication: Respiratory failure with post-obstructive pneumonia and CORY mass Post-operative diagnosis: Same Procedure: Bedside, disposable flexible bronchoscopy, diagnostic and therapeutic Proceduralist: DO CLAUDIA Jean Baptiste Professor Of Mechanical Engineering: ICU nursing staff Anesthesia: Conscious sedation with continuous hemodynamic monitoring. Intubated prior to procedure (airway evaluation unable to be accomplished). ASA 3 EBL: None Complications: None Patient was appropriate identified secondary to ongoing critical care, chart check, and name bracelet. Consent was waived because it could not be obtained from the patient would already been intubated and in the sedated state. There is no family or significant other to discuss. Bronchoscopy was decided secondary to large left upper lobe mass and postobstructive pneumonia. This was done to obtain samples and cytology if possible. Patient had been intubated the day before and was under conscious sedation using typical ICU sedation management protocol. Hemodynamic monitoring was done throughout the entire case. There was no unstable hemodynamics nor hypoxia. Ventilator was evaluated for pressures and found to be appropriate. Using a disposable flexible bronchoscope on entrance into the 7/2 ET tube there is significant mucus obstruction at the distal tip and significant mucus obstruction of the left upper and lingula lobes. Significant amount of lavage was done in a lavage for microbiologic review was done. After this fresh new samples were obtained from both the left upper and lingular lobes for cytology. There was nodularity of significant amount in the trachea and both the left upper and right upper lobes. The left upper lobe had significant mucosal irregularities and these were were inflamed. Cytological samples were taken from these areas. No biopsies were taken secondary to the concern for bleeding. Evaluation of the left lower lobe segments was done. There was mild mucus obstruction which was easily lavaged. No lesions were seen and is much as could be evaluated with the confines of the ET tube. The right upper lobe and right lung were evaluated. There was nodularity in the right upper lobe bronchus. There were no endobronchial lesions. Interrogation of the right lung was minimal secondary to pathology found on chest x-ray limited to the left upper lobe. Patient tolerated procedure well there were no complications Procedure excludes critical care time Indication for Procedure: Post-obstructive pneumonia with mass Date: 07/04/19 Provider: ROSSY JEAN BAPTISTE
[2019-07-04] MEDS: CEFTRIAXONE 2 GM/D5W RTU 2 GM/50 ML RTUPB IV SCH (10:58)
[2019-07-04] MEDS: METHYLPREDNISOLONE INJ 40 MG/1 ML SDV IV SCH ×2 (10:59→21:55)
[2019-07-04] MEDS: AZITHROMYCIN 500 MG in DEXTROSE 5%-WATER 250 ML IV SCH (10:59)
[2019-07-04] MEDS: FOLIC ACID 1 MG TABLET PO SCH (10:59)
[2019-07-04 11:40] LABS: FLUID SOURCE LUNG; FLUID TYPE BRONCHIAL WASH
[2019-07-04 11:42] LABS: FLUID COLOR PINK
[2019-07-04 11:43] LABS: FLUID APPEARANCE CLOUDY; FLUID VISCOSITY LIQUID
[2019-07-04] MEDS ORDERED: NICOTINE 21 MG/24 HR PATCH.TD24 TD ONE (12:10)
--- NOTE | 2019-07-04 12:20 | PDOC CRITICAL CARE PROG REPORT ---
General Date:: 07/04/19 ICU Day:: 2 Ventilator Day:: 2 Hospital Day:: 2 Events in the past 12 to 24 Hours:: 07.04.19 Patient has become more awake and agitated and actually required higher level of sedation last night. He has a known history of significant alcohol and tobacco use. 07.03.19: 59-year-old white male with severe peripheral vascular disease culminating in the removal of both lower extremities above the knee presented with the below: Brought to emergency room by EMS with altered mental status. Initial blood pressure of 70/30 with a heart rate of 87 and a pulse ox of 99% on oxygen with elevated respiratory rate between 30 and 40. He was given a DuoNeb treatment. He was in extremis and moribund. Developed an atrial arrhythmia with reduction in heart rate of 57, he quickly became extremely bradycardic with a rate of 30 or less, and became apneic. [id number] and chest compression resuscitation was started. He was intubated with a 7.5 ET tube without medications. He was given epinephrine 1 mg IV and his heart rate came up above 100 and he had a very strong carotid pulse. He was placed on propofol drip after intubation. Post intubation chest x-ray shows a known large left upper lobe mass, with a new diffuse lower lobe infiltrate. He did have thick yellow sputum come up the endotracheal tube. We were called to evaluate the patient for admission to the ICU. Unable to obtain any history from the patient and there is no family or friends to discuss with. Apparently EMS found the patient covered in a blanket laying next to a space heater. He currently is intubated sedated on propofol. Most of the information obtained is from the emergency room or his electronic health record Patient has a known left upper lobe mass that is very suspicious for malignancy. It was positive uptake on PET scan and he was recommended to have biopsy and evaluation. He has refused this and on his last admission actually left AGAINST MEDICAL ADVICE. He has significant tobacco use disorder as well as alcohol use. Review of systems relevant to events:: Patient underwent bronchoscopy today. There is extensive mucus obstruction of the left upper lobe. BAL was done to the left upper and lingula lobes and cytology was sent. Extensive nodularity of both sides and trachea at the left upper lobe appeared to be anatomically distorted. Reason for ICU Addmission:: Post Respiratory Arrest, on Mechanical Ventilation - Medications: Medications reviewed and adjusted accordingly: Yes Vasopressors:: None Sedation:: Versed. To be stopped. Physical Exam Vital Signs: Temp Pulse Resp BP Pulse Ox 92.4 F L 95 18 107/62 100 07/03/19 14:25 07/04/19 08:45 07/04/19 08:45 07/04/19 06:32 07/04/19 08:45 Intake & Output 07/03/19 07/04/19 07/05/19 06:59 06:59 06:59 Intake Total 2951 104 Output Total 434 35 Balance 2517 69 Weight 62 kg Weight/Height Weight 62 kg Height 35 in General appearance: PRESENT: no acute distress, thin - Emaciated Exam: Intubated chronically and critically ill-appearing but nontoxic 59-year-old male no active distress. He is responsive to voice and stimulation. Head exam: PRESENT: atraumatic, normocephalic Eye exam: PRESENT: conjunctiva pink, PERRLA. ABSENT: conjunctival injection, nystagmus, scleral icterus Mouth exam: PRESENT: moist, neck supple Teeth exam: PRESENT: poor dentation Neck exam: ABSENT: carotid bruit, JVD, lymphadenopathy, thyromegaly Respiratory exam: PRESENT: crackles, rhonchi - left side, unlabored, wheezes. ABSENT: accessory muscle use, tachypnea Cardiovascular exam: PRESENT: RRR, +S1, +S2 Pulses: ABSENT: normal dorsalis pedis pul Vascular exam: PRESENT: normal capillary refill. ABSENT: pallor GI/Abdominal exam: PRESENT: normal bowel sounds, soft. ABSENT: distended, guarding, mass, organolmegaly, rebound, tenderness Rectal exam: PRESENT: deferred Gentrourinary exam: PRESENT: indwelling catheter Extremities exam: PRESENT: other - Bilateral AKA. Stump sites pink, warm without drainage or erythema Neurological exam: PRESENT: altered. ABSENT: motor sensory deficit - Moves extremities to stimulus Skin exam: PRESENT: dry, intact, normal color, warm. ABSENT: cyanosis, jaundice, mottled, pallor, rash, urticaria, vesicles Tubes/Lines: PRESENT: Endotracheal Tube, Other - Wisdom Laboratory/Radiographs Laboratory Results: 07/04/19 04:29 07/04/19 04:29 07/03/19 07/03/19 07/03/19 11:50 11:50 11:50 WBC 12.0 H RBC 2.73 L Hgb 8.2 L Hct 25.5 L MCV 94 MCH 30.1 MCHC 32.2 RDW 19.1 H Plt Count 708 H Seg Neutrophils % 84.3 H Carbonic Acid HCO3/H2CO3 Ratio ABG pH ABG pCO2 ABG pO2 ABG HCO3 ABG O2 Saturation ABG Base Excess Carboxyhemoglobin FiO2 Sodium 140.7 Potassium 4.7 Chloride 108 H Carbon Dioxide 25 Anion Gap 8 BUN 15 Creatinine 0.62 Est GFR ( Amer) > 60 Glucose 120 H Calcium 8.5 Phosphorus Magnesium Total Bilirubin 0.2 AST 32 Alkaline Phosphatase 134 H Ammonia Total Protein 6.1 L Albumin 2.6 L Triglycerides Cholesterol LDL Cholesterol Direct VLDL Cholesterol HDL Cholesterol TSH Urine Color YELLOW Urine Appearance SLIGHTLY-CLOUDY Urine pH 5.0 Ur Specific [employer] 1.021 Urine Protein 30 H Urine Glucose (UA) NEGATIVE Urine Ketones NEGATIVE Urine Blood MODERATE H Urine Nitrite NEGATIVE Ur Leukocyte Esterase TRACE H Urine WBC (Auto) 5 Urine RBC (Auto) 4 Blood Type Antibody Screen 07/03/19 07/03/19 07/03/19 11:50 11:50 14:08 WBC RBC Hgb Hct MCV MCH MCHC RDW Plt Count Seg Neutrophils % Carbonic Acid HCO3/H2CO3 Ratio ABG pH ABG pCO2 ABG pO2 ABG HCO3 ABG O2 Saturation ABG Base Excess Carboxyhemoglobin FiO2 Sodium Potassium Chloride Carbon Dioxide Anion Gap BUN Creatinine Est GFR ( Amer) Glucose Calcium Phosphorus 4.8 H Magnesium 2.0 Total Bilirubin AST Alkaline Phosphatase Ammonia 17.4 Total Protein Albumin Triglycerides Cholesterol LDL Cholesterol Direct VLDL Cholesterol HDL Cholesterol TSH 5.27 H Urine Color Urine Appearance Urine pH Ur Specific [employer] Urine Protein Urine Glucose (UA) Urine Ketones Urine Blood Urine Nitrite Ur Leukocyte Esterase Urine WBC (Auto) Urine RBC (Auto) Blood Type Antibody Screen 07/03/19 07/03/19 07/03/19 14:08 15:20 15:54 WBC RBC Hgb Hct MCV MCH MCHC RDW Plt Count Seg Neutrophils % Carbonic Acid 1.99 H 1.41 H HCO3/H2CO3 Ratio 11:1 15:1 ABG pH 7.14 L* 7.30 L ABG pCO2 66.2 H 46.9 H ABG pO2 470.6 H 54.7 L ABG HCO3 22.0 22.5 ABG O2 Saturation 99.8 H 85.0 L ABG Base Excess -7.3 -3.9 Carboxyhemoglobin 2.6 H FiO2 100% 80% Sodium Potassium Chloride Carbon Dioxide Anion Gap BUN Creatinine Est GFR ( Amer) Glucose Calcium Phosphorus Magnesium Total Bilirubin AST Alkaline Phosphatase Ammonia Total Protein Albumin Triglycerides Cholesterol LDL Cholesterol Direct VLDL Cholesterol HDL Cholesterol TSH Urine Color Urine Appearance Urine pH Ur Specific [employer] Urine Protein Urine Glucose (UA) Urine Ketones Urine Blood Urine Nitrite Ur Leukocyte Esterase Urine WBC (Auto) Urine RBC (Auto) Blood Type Antibody Screen 07/04/19 07/04/19 07/04/19 04:29 04:29 06:30 WBC 11.1 H RBC 2.24 L Hgb 6.6 L Hct 20.5 L MCV 92 MCH 29.5 MCHC 32.2 RDW 18.2 H Plt Count 568 H Seg Neutrophils % Not Reportable Carbonic Acid 1.11 HCO3/H2CO3 Ratio 17:1 ABG pH 7.35 ABG pCO2 36.8 ABG pO2 84.3 ABG HCO3 19.9 L ABG O2 Saturation 96.0 ABG Base Excess -5.2 Carboxyhemoglobin FiO2 40% Sodium 140.3 Potassium 5.2 H Chloride 112 H Carbon Dioxide 17 L Anion Gap 11 BUN 15 Creatinine 0.60 Est GFR ( Amer) > 60 Glucose 143 H Calcium 8.3 L Phosphorus Magnesium Total Bilirubin AST Alkaline Phosphatase Ammonia Total Protein Albumin Triglycerides 102 Cholesterol 143.76 LDL Cholesterol Direct 123 H VLDL Cholesterol 20.0 HDL Cholesterol 24 L TSH Urine Color Urine Appearance Urine pH Ur Specific [employer] Urine Protein Urine Glucose (UA) Urine Ketones Urine Blood Urine Nitrite Ur Leukocyte Esterase Urine WBC (Auto) Urine RBC (Auto) Blood Type Antibody Screen 07/04/19 06:45 WBC RBC Hgb Hct MCV MCH MCHC RDW Plt Count Seg Neutrophils % Carbonic Acid HCO3/H2CO3 Ratio ABG pH ABG pCO2 ABG pO2 ABG HCO3 ABG O2 Saturation ABG Base Excess Carboxyhemoglobin FiO2 Sodium Potassium Chloride Carbon Dioxide Anion Gap BUN Creatinine Est GFR ( Amer) Glucose Calcium Phosphorus Magnesium Total Bilirubin AST Alkaline Phosphatase Ammonia Total Protein Albumin Triglycerides Cholesterol LDL Cholesterol Direct VLDL Cholesterol HDL Cholesterol TSH Urine Color Urine Appearance Urine pH Ur Specific [employer] Urine Protein Urine Glucose (UA) Urine Ketones Urine Blood Urine Nitrite Ur Leukocyte Esterase Urine WBC (Auto) Urine RBC (Auto) Blood Type A POSITIVE Antibody Screen NEGATIVE 11/07/03/19 07/03/19 10:54 11:50 15:20 Creatine Kinase 79 54 L Troponin I < 0.012 All labs, radiographs, diagnostic studies and EKGs were personally reviewed: Yes In addition, reports of radiographic and diagnostic studies were read: Yes Assessment and Plan - Diagnosis (1) Respiratory arrest before cardiac arrest Is this a current diagnosis for this admission?: Yes (2) Cardiac arrest due to respiratory disorder Is this a current diagnosis for this admission?: Yes (3) Postobstructive pneumonia Is this a current diagnosis for this admission?: Yes (4) Mass of left lung Is this a current diagnosis for this admission?: Yes (5) Malignant cachexia Is this a current diagnosis for this admission?: Yes (6) Pulmonary cachexia due to chronic obstructive pulmonary disease Is this a current diagnosis for this admission?: Yes (7) Tobacco abuse Is this a current diagnosis for this admission?: Yes (8) EtOH dependence Qualifiers: Substance use status: uncomplicated Qualified Code(s): F10.20 - Alcohol dependence, uncomplicated Is this a current diagnosis for this admission?: Yes (9) Respiratory acidosis Is this a current diagnosis for this admission?: Yes (10) Emphysema of lung Qualifiers: Emphysema type: panlobular Qualified Code(s): J43.1 - Panlobular emphysema Is this a current diagnosis for this admission?: Yes (11) Metabolic acidosis Is this a current diagnosis for this admission?: Yes Plan: Unable to obtain Ketones. Non-anion gap but have sent salicylate. Hyperchloremic from resuscitation. Will diurese Plan Summary: 07.04.19: Patient had bronchoscopy with mucus obstruction in the left upper lobe. There is distorted anatomy and atelectasis both on x-ray and on bronchoscopy. He is on broad-spectrum antibiotics at this point and appears to be improving clinically. He does have a metabolic acidosis that is non-anion gap. This most likely represents hyperchloremia from fluid resuscitation during his cardiopulmonary arrest. We will start to diurese the patient today. Have sent cytology on the left upper lobe. Hopefully this will guide prognosis and therapy for this patient. Of distinct importance is that there has been absence of any visitors and there is no family that has been able to be contacted. 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 Will utilize case management social work job titles in an attempt to reach out to the next of kin. Patient had stated on previous admissions that he did not want any evaluation for nor therapy for this possible malignancy. Have started nutritional therapy Patient has a poor prognosis. 07.03.19: Logically, patient will need to be admitted to the ICU. We will need to determine his neurological function given the combined respiratory and cardiac arrest. He does have what appears to be a postobstructive pneumonia and a growing left lung mass. Based on information that we have gathered from electronic medical record he has been refusing and/or unwilling to have any work-up or diagnostic studies. We are unable to confirm what his wishes may be. We are attempting to reach family or friends to discuss this patient's case and care. If we are unable to contact anyone we we will pursue a bronchoscopy to obtain specimens and perhaps biopsy of the tumor if possible. Patient has significant emphysema presumably from long-standing tobacco use. Of necessity and alpha-1 antitrypsin would need to be evaluated however this would need to be done at an outpatient setting to assure accuracy. Patient has bilateral above-knee amputations and has significant peripheral vascular disease. We will follow-up on labs, obtain specimens from respiratory secretions, attempt to contact family Control pressures on the ventilator. Ventilator settings change for the acidosis. Critical Time Critical Time (minutes): 45 Level of Care: ICU Anticipated discharge: Acute Rehab Within: within 24 hours -: 1. The care of a critical patient is a dynamic process. This note is a associate sales representative synopsis but static in nature. The timeframe for treatments given in order is not necessary the actual time these treatments may have been done. 2. This patient requires critical care secondary to ongoing requirements for therapy not offered or safe outside the critical care environment. Transfer to a lower level of care with altered life or limb morbidity and mortality. 3. Multidisciplinary rounds completed. 4. ABCDE bundle addressed. Unable to establish MPOA
--- NOTE | 2019-07-04 13:07 | Progress Note ---
Provider Note Provider Note: I had the opportunity to meet with the patient's best friend named Kezia Galvan phone #[phone] and his best work friend Chavo Gonzalez: [phone]. They relate that the patient has known for quite some time about this left lung mass and did not want it taken care of nor treated. He has had a steady decline in his health and basically remains domiciled at home bedridden. They said that he has a significant alcohol intake but for the last 3 weeks has not imbibed. He does smoke a significant amount of cigarettes (possibly up to 3 packs/day or more). He was scheduled to go to the [place] for further evaluation and possible placement in a care facility because he has become so unhealthy. His friend Breana relates that the patient was not going to do this. He did not want aggressive treatment nor did he want to be domiciled in a nursing care facility. Last week he was quite ill and his friend called an ambulance. When the ambulance established that he was not having a stroke the patient refused to come because he knew that they would interrogate his cancer. He has been seen at the [facility] and at that time (before 2018) the left upper lung nodule was present. While we are aware of the patient's wishes our attempt is to allow him to be awake enough to establish goals of care. Patient does not have any living relatives and has been cared for by his friend Tiffanie for some time. Kezia relates that their relationship has always been a friendship and is not a romantic or financial relationship. In addition to this Evi Aguilera associated with the [place] had been working with him as spring encaser. Her number is [phone]. It is essential that we establish the patient's plan and goals of care and we will transition him to [facility]. He did have a cardiac arrest which was not associated with a significant downtime. We are hopeful that he will be neurologically intact to be able to relate his plans and wishes. If this does not occur then patient will need a state guardian. Our hope is that his friends will provide enough insight so that the patient does not remain prolonged on mechanical ventilation. Total critical care time 15 minutes
[2019-07-04] MEDS ORDERED: RINGERS SOLUTION,LACTATED 1,000 ML IV PRN (13:08)
[2019-07-04] MEDS: FAMOTIDINE 20 MG TABLET PO SCH ×2 (14:13→21:55)
[2019-07-04] MEDS ORDERED: HALOPERIDOL LACTATE INJ 5 MG/1 ML VIAL ONE (14:21)
[2019-07-04] MEDS ORDERED: HALOPERIDOL LACTATE INJ 5 MG/1 ML VIAL IV PRN (14:22)
[2019-07-04] MEDS ORDERED: LORAZEPAM INJ 2 MG/1 ML VIAL IV ONE (14:23)
[2019-07-04] MEDS ORDERED: LORAZEPAM INJ 2 MG/1 ML VIAL ONE (14:23)
[2019-07-04 14:41] LABS: HEMATOCRIT 22.8 % (37.9-51.0); MEAN CORPUSCULAR HEMOGLOBIN 29.7 pg (27.0-33.4); MEAN CORPUSCULAR HGB CONC 31.2 g/dL (32.0-36.0); MEAN CORPUSCULAR VOLUME 95 fl (80-97); RED CELL DISTRIBUTION WIDTH 18.8 % (11.5-14.0); WHITE BLOOD COUNT 17.3 10^3/uL (4.0-10.5)
[2019-07-04 15:04] LABS: HEMOGLOBIN 7.1 g/dL (13.5-17.0); PLATELET COUNT 365 10^3/uL (150-450)
[2019-07-04] MEDS: WATER FOR INJECTION,STERILE 1,000 ML with SODIUM BICARBONATE 125 MEQ IV PRN ×2 (15:20)
--- NOTE | 2019-07-04 15:47 | RADIOLOGY REPORT (SQ) ---
EXAM DESCRIPTION: CHEST SINGLE VIEW COMPLETED DATE/TIME: 07/04/2019 3:24 pm REASON FOR STUDY: hypoxia COMPARISON: Earlier the same day. NUMBER OF VIEWS: One view. TECHNIQUE: Single frontal radiographic image of the chest acquired. LIMITATIONS: None. FINDINGS: LUNGS AND PLEURA: Better definition of the left heart border and diaphragm. Right lung is clear. No pneumothorax. MEDIASTINUM AND HILAR STRUCTURES: Stable heart size and mediastinal structures. HEART AND VASCULAR STRUCTURES: Stable appearance. SUPPORT DEVICES: Appropriate location without change. BONES: No acute findings. OTHER: No other significant finding. IMPRESSION: STABLE APPEARANCE OF THE CHEST. SUPPORT DEVICES UNCHANGED. TECHNICAL DOCUMENTATION: JOB ID: [id number] [employer]- All Rights Reserved Reading location - IP/workstation name: [email or web address]
[2019-07-04 16:41] LABS: ARTERIAL BLOOD BASE EXCESS -3.9 mmol/L; ARTERIAL BLOOD H2CO3 1.52 mmol/L (1.05-1.35); ARTERIAL BLOOD HCO3 22.7 mmol/L (20-24); ARTERIAL BLOOD O2 SATURATION 98.3 % (94-98); ARTERIAL BLOOD PCO2 50.5 mmHg (35-45); ARTERIAL BLOOD PH 7.27 (7.35-7.45); ARTERIAL BLOOD PO2 133.9 mmHg (80-100); ARTERIAL BLOOD TOTAL CO2 24.3 mmol/L (23-27)
[2019-07-04 16:42] LABS: ARTERIAL BLOOD FIO2 40%
[2019-07-04] MEDS ORDERED: PROPOFOL 1,000 MG/100 ML INFUS..BTL IV ONE (17:01)
[2019-07-04] MEDS: PROPOFOL 1,000 MG/100 ML INFUS..BTL IV PRN ×2 (17:30→22:06)
[2019-07-04] MEDS: GABAPENTIN 100 MG CAPSULE PO SCH ×2 (17:34→21:55)
[2019-07-04] MEDS: THIAMINE HCL 500 MG in NORMAL SALINE 250 ML IV SCH (17:38)
[2019-07-04] MEDS: QUETIAPINE FUMARATE 25 MG TABLET PO SCH (17:38)
[2019-07-04 17:39] LABS: ANION GAP 9 (5-19); BLOOD UREA NITROGEN 18 mg/dL (7-20); CALCIUM 8.2 mg/dL (8.4-10.2); CARBON DIOXIDE 21 mmol/L (22-30); CHLORIDE 108 mmol/L (98-107); GLUCOSE 139 mg/dL (75-110); PHOSPHORUS 4.6 mg/dL (2.5-4.5); POTASSIUM 5.2 mmol/L (3.6-5.0)
[2019-07-04 19:09] LABS: ARTERIAL BLOOD BASE EXCESS -3.3 mmol/L; ARTERIAL BLOOD H2CO3 1.21 mmol/L (1.05-1.35); ARTERIAL BLOOD HCO3 21.9 mmol/L (20-24); ARTERIAL BLOOD O2 SATURATION 93.4 % (94-98); ARTERIAL BLOOD PCO2 40.2 mmHg (35-45); ARTERIAL BLOOD PH 7.36 (7.35-7.45); ARTERIAL BLOOD PO2 69.8 mmHg (80-100); ARTERIAL BLOOD TOTAL CO2 23.2 mmol/L (23-27)
[2019-07-04 19:15] LABS: ARTERIAL BLOOD FIO2 30%
[2019-07-05] MEDS: DEXMEDETOMIDINE IN 0.9 % NACL 400 MCG/100 ML RTUPB IV PRN ×4 (00:10→17:28)
[2019-07-05] MEDS: IPRATROPIUM/ALBUTEROL 0.5-2.5 MG/3 ML AMPUL NEB SCH ×5 (04:19→19:50)
[2019-07-05 05:20] LABS: ALBUMIN 2.5 g/dL (3.5-5.0); ALKALINE PHOSPHATASE 123 U/L (38-126); ANION GAP 11 (5-19); ASPARTATE AMINO TRANSFERASE 24 U/L (17-59); BILIRUBIN,DIRECT 0.2 mg/dL (0.0-0.4); BILIRUBIN,TOTAL 0.2 mg/dL (0.2-1.3); BLOOD UREA NITROGEN 21 mg/dL (7-20); CALCIUM 8.5 mg/dL (8.4-10.2); CARBON DIOXIDE 22 mmol/L (22-30); CHLORIDE 107 mmol/L (98-107); GLUCOSE 144 mg/dL (75-110); PHOSPHORUS 3.6 mg/dL (2.5-4.5); TOTAL PROTEIN 5.6 g/dL (6.3-8.2)
[2019-07-05 05:22] LABS: HEMATOCRIT 22.7 % (37.9-51.0); MEAN CORPUSCULAR HGB CONC 32.2 g/dL (32.0-36.0); PLATELET COUNT 577 10^3/uL (150-450); RED BLOOD COUNT 2.52 10^6/uL (4.35-5.55); RED CELL DISTRIBUTION WIDTH 18.2 % (11.5-14.0); WHITE BLOOD COUNT 17.9 10^3/uL (4.0-10.5)
[2019-07-05] MEDS: WATER FOR INJECTION,STERILE 1,000 ML with SODIUM BICARBONATE 125 MEQ IV PRN ×4 (05:25→19:38)
[2019-07-05] MEDS: HEPARIN SOD (PORCINE) 5,000 UNIT/ML 1 ML VIAL SUBCUT SCH ×3 (05:25→21:49)
[2019-07-05] MEDS: GABAPENTIN 100 MG CAPSULE PO SCH ×3 (05:26→21:49)
[2019-07-05 05:29] LABS: ARTERIAL BLOOD BASE EXCESS 0.7 mmol/L; ARTERIAL BLOOD FIO2 30%; ARTERIAL BLOOD H2CO3 1.04 mmol/L (1.05-1.35); ARTERIAL BLOOD HCO3 24.3 mmol/L (20-24); ARTERIAL BLOOD O2 SATURATION 98.7 % (94-98); ARTERIAL BLOOD PCO2 34.7 mmHg (35-45); ARTERIAL BLOOD PH 7.46 (7.35-7.45); ARTERIAL BLOOD PO2 128.7 mmHg (80-100); ARTERIAL BLOOD TOTAL CO2 25.4 mmol/L (23-27)
[2019-07-05] MEDS: FENTANYL CITRATE/PF 600 MCG/60 ML BAG IV PRN (05:30)
[2019-07-05 05:31] LABS: MEAN CORPUSCULAR VOLUME 90 fl (80-97)
[2019-07-05 05:32] LABS: HEMOGLOBIN 7.3 g/dL (13.5-17.0)
[2019-07-05 05:34] LABS: ABSOLUTE LYMPHOCYTES# (MANUAL) 0.5 10^3/uL (0.5-4.7); ABSOLUTE MONOCYTES # (MANUAL) 0.5 10^3/uL (0.1-1.4); BASOPHILS % (MANUAL) 0 % (0-2); EOSINOPHILS % (MANUAL) 0 % (0-6); LYMPHOCYTES % (MANUAL) 3 % (13-45); MONOCYTES % (MANUAL) 3 % (3-13); NUCLEATED RED BLOOD CELLS 1 /100 WBC (0); SEGMENTED NEUTROPHILS % (MAN) 94 % (42-78); TOTAL CELLS COUNTED 100
[2019-07-05 05:37] LABS: ANISOCYTOSIS 1+; POIKILOCYTOSIS 1+; TOXIC GRANULATION 1+; TOXIC VACUOLATION PRESENT
[2019-07-05 05:38] LABS: OVALOCYTES 2+; PLATELET COMMENT ADEQUATE; TEAR DROP CELLS 1+
[2019-07-05] MEDS ORDERED: LORAZEPAM INJ 2 MG/1 ML VIAL ONE ×2 (07:23→18:42)
--- NOTE | 2019-07-05 08:29 | RADIOLOGY REPORT (SQ) ---
EXAM DESCRIPTION: CHEST SINGLE VIEW COMPLETED DATE/TIME: 07/05/2019 5:57 am REASON FOR STUDY: respiratory failure COMPARISON: 07/04/2019. EXAM PARAMETERS: NUMBER OF VIEWS: One view. TECHNIQUE: Single frontal radiographic view of the chest acquired. RADIATION DOSE: NA LIMITATIONS: None. FINDINGS: LUNGS AND PLEURA: Continued volume loss on the left side with left upper lobe mass and luh nting of the left costophrenic angle. Right lung relatively clear. MEDIASTINUM AND HILAR STRUCTURES: No masses. Contour normal. HEART AND VASCULAR STRUCTURES: Heart normal in size. Normal vasculature. BONES: No acute findings. HARDWARE: Endotracheal tube and nasogastric tube. OTHER: No other significant finding. IMPRESSION: NO SIGNIFICANT INTERVAL CHANGE. TECHNICAL DOCUMENTATION: JOB ID: [id number] [employer]- All Rights Reserved Reading location - IP/workstation name: [email or web address]
[2019-07-05] MEDS: AZITHROMYCIN 500 MG in DEXTROSE 5%-WATER 250 ML IV SCH (09:05)
[2019-07-05] MEDS: CEFTRIAXONE 2 GM/D5W RTU 2 GM/50 ML RTUPB IV SCH (09:06)
[2019-07-05] MEDS: METHYLPREDNISOLONE INJ 40 MG/1 ML SDV IV SCH ×2 (09:07→21:50)
[2019-07-05] MEDS: QUETIAPINE FUMARATE 25 MG TABLET PO SCH ×2 (09:07→21:50)
[2019-07-05] MEDS: FAMOTIDINE 20 MG TABLET PO SCH ×2 (09:08→21:49)
[2019-07-05] MEDS: FOLIC ACID 1 MG TABLET PO SCH (09:08)
--- NOTE | 2019-07-05 11:19 | PDOC CRITICAL CARE PROG REPORT ---
General Date:: 07/05/19 ICU Day:: 3 Ventilator Day:: 3 Hospital Day:: 3 Events in the past 12 to 24 Hours:: Unable to wean. Poor NIF of 9 RSBI of 50. Poor cough. Not extubatable. Review of systems relevant to events:: Respiratory, secretions, poor effort and cough. Neuro, difficult to acheive a balance of awake and thrashing and too sedated to wean. Reason for ICU Addmission:: Post Respiratory Arrest, on Mechanical Ventilation - Medications: Medications reviewed and adjusted accordingly: Yes Vasopressors:: No Sedation:: Precedex Physical Exam Vital Signs: Temp Pulse Resp BP Pulse Ox 99.7 F 105 H 18 112/65 98 07/05/19 10:00 07/05/19 10:00 07/05/19 10:51 07/05/19 10:51 07/05/19 10:51 Intake & Output 07/04/19 07/05/19 07/06/19 06:59 06:59 06:59 Intake Total 2951 2215 Output Total 434 607 30 Balance 2517 1608 -30 Weight 62 kg 63.8 kg Weight/Height Weight 63.8 kg Height 35 in General appearance: PRESENT: disheveled, thin Exam: Sedated. Head exam: PRESENT: atraumatic, normocephalic Eye exam: PRESENT: PERRLA Ear exam: PRESENT: normal external ear exam Mouth exam: PRESENT: moist, tongue midline, other - ETT and OG present Respiratory exam: PRESENT: crackles, decreased breath sounds, rhonchi, unlabored Cardiovascular exam: PRESENT: RRR. ABSENT: diastolic murmur, rubs, systolic murmur Pulses: PRESENT: normal dorsalis pedis pul Vascular exam: PRESENT: normal capillary refill GI/Abdominal exam: PRESENT: normal bowel sounds, soft. ABSENT: distended, guarding, mass, organolmegaly, rebound, tenderness Rectal exam: PRESENT: deferred Extremities exam: PRESENT: other - Bilater BKAs Neurological exam: PRESENT: other - Sedated Skin exam: PRESENT: dry, intact, warm. ABSENT: cyanosis, rash Tubes/Lines: PRESENT: Endotracheal Tube, Nasogastic Tube Laboratory/Radiographs Laboratory Results: 07/05/19 04:29 07/05/19 04:29 07/04/19 07/04/19 07/04/19 10:10 14:32 16:30 WBC 17.3 H RBC 2.40 L Hgb 7.1 L Hct 22.8 L MCV 95 MCH 29.7 MCHC 31.2 L RDW 18.8 H Plt Count 365 Seg Neutrophils % Carbonic Acid 1.52 H HCO3/H2CO3 Ratio 14:1 ABG pH 7.27 L ABG pCO2 50.5 H ABG pO2 133.9 H ABG HCO3 22.7 ABG O2 Saturation 98.3 H ABG Base Excess -3.9 FiO2 40% Sodium Potassium Chloride Carbon Dioxide Anion Gap BUN Creatinine Est GFR ( Amer) Glucose Calcium Phosphorus Magnesium Total Bilirubin AST Alkaline Phosphatase Total Protein Albumin Fluid Type BRONCHIAL WASH Fluid Source LUNG Fluid Color PINK Fluid Appearance CLOUDY Fluid Viscosity LIQUID Fluid WBC 575 Fluid RBC 3360 07/04/19 07/04/19 07/05/19 17:00 19:00 04:20 WBC RBC Hgb Hct MCV MCH MCHC RDW Plt Count Seg Neutrophils % Carbonic Acid 1.21 1.04 L HCO3/H2CO3 Ratio 18:1 23:1 ABG pH 7.36 7.46 H ABG pCO2 40.2 34.7 L ABG pO2 69.8 L 128.7 H ABG HCO3 21.9 24.3 H ABG O2 Saturation 93.4 L 98.7 H ABG Base Excess -3.3 0.7 FiO2 30% 30% Sodium 138.0 Potassium 5.2 H Chloride 108 H Carbon Dioxide 21 L Anion Gap 9 BUN 18 Creatinine 0.71 Est GFR ( Amer) > 60 Glucose 139 H Calcium 8.2 L Phosphorus 4.6 H Magnesium 1.7 Total Bilirubin AST Alkaline Phosphatase Total Protein Albumin Fluid Type Fluid Source Fluid Color Fluid Appearance Fluid Viscosity Fluid WBC Fluid RBC 07/05/19 07/05/19 04:29 04:29 WBC 17.9 H RBC 2.52 L Hgb 7.3 L Hct 22.7 L MCV 90 D MCH 29.0 MCHC 32.2 RDW 18.2 H Plt Count 577 H Seg Neutrophils % Not Reportable Carbonic Acid HCO3/H2CO3 Ratio ABG pH ABG pCO2 ABG pO2 ABG HCO3 ABG O2 Saturation ABG Base Excess FiO2 Sodium 139.8 Potassium 5.0 Chloride 107 Carbon Dioxide 22 Anion Gap 11 BUN 21 H Creatinine 0.70 Est GFR ( Amer) > 60 Glucose 144 H Calcium 8.5 Phosphorus 3.6 Magnesium 1.7 Total Bilirubin 0.2 AST 24 Alkaline Phosphatase 123 Total Protein 5.6 L Albumin 2.5 L Fluid Type Fluid Source Fluid Color Fluid Appearance Fluid Viscosity Fluid WBC Fluid RBC 07/03/19 15:11 Tracheal Aspirate Gram Stain - Final 07/03/19 15:11 Tracheal Aspirate Sputum Culture - Final Staphylococcus Aureus Acinetobacter Baumannii/Haem Klebsiella Oxytoca Normal Shakila 07/03/19 07/03/19 07/03/19 10:54 11:50 15:20 Creatine Kinase 79 54 L Troponin I < 0.012 Impressions: Chest X-Ray 07/05/19 06:00 IMPRESSION: NO SIGNIFICANT INTERVAL CHANGE. All labs, radiographs, diagnostic studies and EKGs were personally reviewed: Yes In addition, reports of radiographic and diagnostic studies were read: Yes Assessment and Plan - Diagnosis (1) Cardiac arrest due to respiratory disorder Is this a current diagnosis for this admission?: Yes Plan: With ineffective cough, poor nif and poor mental status makes a primary respiratory events more likely. (2) Emphysema of lung Qualifiers: Emphysema type: panlobular Qualified Code(s): J43.1 - Panlobular emphysema Is this a current diagnosis for this admission?: Yes Plan: No active wheezing. (3) Mass of left lung Is this a current diagnosis for this admission?: Yes Plan: Most likely a large lung cancer. Evidence of central necrosis. The patient has historically not wanted to pursue a work up and treatment and we know not much else about this tumor. It is pulling is L lug to the periphery. (4) COPD (chronic obstructive pulmonary disease) Qualifiers: COPD type: COPD with acute exacerbation Qualified Code(s): J44.1 - Chronic obstructive pulmonary disease with (acute) exacerbation Is this a current diagnosis for this admission?: Yes Plan: Not actively wheezing Plan Summary: Attempt further weaning but pt likely needs a guardian to plan end of life decisions. Critical Time Critical Time (minutes): 40 Level of Care: ICU Anticipated discharge: Other Within: Other -: 1. The care of a critical patient is a dynamic process. This note is a reimbursement representative synopsis but static in nature. The timeframe for treatments given in order is not necessary the actual time these treatments may have been done. 2. This patient requires critical care secondary to ongoing requirements for therapy not offered or safe outside the critical care environment. Transfer to a lower level of care with altered life or limb morbidity and mortality. 3. Multidisciplinary rounds completed. 4. ABCDE bundle addressed.
[2019-07-05] MEDS: LORAZEPAM INJ 2 MG/1 ML VIAL IV PRN (21:50)
[2019-07-06] MEDS: IPRATROPIUM/ALBUTEROL 0.5-2.5 MG/3 ML AMPUL NEB SCH ×6 (00:43→20:46)
[2019-07-06] MEDS: DEXMEDETOMIDINE IN 0.9 % NACL 400 MCG/100 ML RTUPB IV PRN ×2 (00:44→09:07)
[2019-07-06 04:34] LABS: ABSOLUTE BASOPHILS # (AUTO) 0.1 10^3/uL (0.0-0.2); ABSOLUTE LYMPHOCYTES (AUTO) 0.8 10^3/uL (0.5-4.7); ABSOLUTE MONOCYTES (AUTO) 0.6 10^3/uL (0.1-1.4); ABSOLUTE NEUT (AUTO) 13.6 10^3/uL (1.7-8.2); BASOPHILS % (AUTO) 0.5 % (0-2); HEMATOCRIT 23.1 % (37.9-51.0); LYMPHOCYTES % (AUTO) 5.5 % (13-45); MEAN CORPUSCULAR HEMOGLOBIN 30.4 pg (27.0-33.4); MEAN CORPUSCULAR HGB CONC 33.4 g/dL (32.0-36.0); MEAN CORPUSCULAR VOLUME 91 fl (80-97); MONOCYTES % (AUTO) 3.8 % (3-13); PLATELET COUNT 547 10^3/uL (150-450); RED BLOOD COUNT 2.54 10^6/uL (4.35-5.55); RED CELL DISTRIBUTION WIDTH 17.5 % (11.5-14.0); SEGMENTED NEUTROPHILS % (AUTO) 90.2 % (42-78); TOTAL CELLS COUNTED % (AUTO) 100 %
[2019-07-06 04:38] LABS: ANION GAP 7 (5-19); BLOOD UREA NITROGEN 16 mg/dL (7-20); CALCIUM 8.3 mg/dL (8.4-10.2); CARBON DIOXIDE 29 mmol/L (22-30); CHLORIDE 101 mmol/L (98-107); GLUCOSE 147 mg/dL (75-110)
[2019-07-06 04:54] LABS: POTASSIUM 3.8 mmol/L (3.6-5.0)
[2019-07-06] MEDS: LORAZEPAM INJ 2 MG/1 ML VIAL IV PRN ×5 (05:10→22:39)
[2019-07-06 05:17] LABS: HEMOGLOBIN 7.7 g/dL (13.5-17.0)
[2019-07-06] MEDS: HEPARIN SOD (PORCINE) 5,000 UNIT/ML 1 ML VIAL SUBCUT SCH ×3 (05:58→21:59)
[2019-07-06] MEDS: GABAPENTIN 100 MG CAPSULE PO SCH ×3 (05:59→22:00)
[2019-07-06] MEDS ORDERED: THIAMINE HCL 250 MG in NORMAL SALINE 50 ML IV SCH (06:00)
[2019-07-06 06:37] LABS: ARTERIAL BLOOD BASE EXCESS 4.3 mmol/L; ARTERIAL BLOOD H2CO3 1.11 mmol/L (1.05-1.35); ARTERIAL BLOOD HCO3 27.9 mmol/L (20-24); ARTERIAL BLOOD O2 SATURATION 97.1 % (94-98); ARTERIAL BLOOD PCO2 36.8 mmHg (35-45); ARTERIAL BLOOD PO2 84.6 mmHg (80-100)
[2019-07-06 06:45] LABS: ARTERIAL BLOOD FIO2 30%
[2019-07-06] MEDS ORDERED: FUROSEMIDE INJ/PF 40 MG/4 ML SDV IV ONE (07:21)
--- NOTE | 2019-07-06 08:15 | RADIOLOGY REPORT (SQ) ---
EXAM DESCRIPTION: CHEST SINGLE VIEW COMPLETED DATE/TIME: 07/06/2019 7:22 am REASON FOR STUDY: respiratory failure COMPARISON: EXAM PARAMETERS: NUMBER OF VIEWS: One view. TECHNIQUE: Single frontal radiographic view of the chest acquired. RADIATION DOSE: NA LIMITATIONS: None. FINDINGS: LUNGS AND PLEURA: Unchanged dense left upper lung rounded mass. Patchy left basilar inter stitial alveolar opacities, stable from prior. Unremarkable right hemithorax. MEDIASTINUM AND HILAR STRUCTURES: Left suprahilar opacity, stable. HEART AND VASCULAR STRUCTURES: Normal size BONES: No acute findings. HARDWARE: Endotracheal tube tip overlies proximal thoracic trachea, stable. Enteric tube tip below d iaphragm but excluded by collimation. OTHER: No other significant finding. IMPRESSION: Stable left apical mass and patchy basilar opacities. Enteric tube side port at GE junction. Consider advancing 5 cm. TECHNICAL DOCUMENTATION: JOB ID: [id number] [employer]- All Rights Reserved Reading location - IP/workstation name: [email or web address]
--- NOTE | 2019-07-06 09:14 | PDOC CRITICAL CARE PROG REPORT ---
General Date:: 07/06/19 ICU Day:: 4 Ventilator Day:: 4 Hospital Day:: 4 Events in the past 12 to 24 Hours:: Attempts to address code status and patient wishes. Complicated by no family. Weaning trial failed. Review of systems relevant to events:: Respiratory, neuro. Reason for ICU Addmission:: Post Respiratory Arrest, on Mechanical Ventilation - Medications: Medications reviewed and adjusted accordingly: Yes Vasopressors:: None Sedation:: Precedex, fentanyl, seraquel, haldol Physical Exam Vital Signs: Temp Pulse Resp BP Pulse Ox 100.2 F 92 16 125/62 98 07/05/19 16:00 07/06/19 08:00 07/06/19 06:00 07/06/19 05:51 07/06/19 06:00 Intake & Output 07/05/19 07/06/19 07/07/19 06:59 06:59 06:59 Intake Total 2215 590 Output Total 607 799 50 Balance 1608 -209 -50 Weight 63.8 kg 65.4 kg Weight/Height Weight 65.4 kg Height 35 in General appearance: PRESENT: disheveled Exam: Alternating from deep sedation to agitated without coherency Head exam: PRESENT: atraumatic, normocephalic Eye exam: PRESENT: PERRLA Ear exam: PRESENT: normal external ear exam Mouth exam: PRESENT: other - ETT and OG present Respiratory exam: PRESENT: clear to auscultation yuli, crackles, decreased breath sounds, rhonchi, unlabored Cardiovascular exam: PRESENT: RRR. ABSENT: diastolic murmur, rubs, systolic murmur Vascular exam: PRESENT: normal capillary refill GI/Abdominal exam: PRESENT: normal bowel sounds, soft. ABSENT: distended, guard ing, mass, organolmegaly, rebound, tenderness Rectal exam: PRESENT: deferred Extremities exam: PRESENT: other - Bilateral AKAs Neurological exam: PRESENT: altered Psychiatric exam: PRESENT: agitated Tubes/Lines: PRESENT: Endotracheal Tube, Nasogastic Tube Laboratory/Radiographs Laboratory Results: 07/06/19 04:12 07/06/19 04:12 07/06/19 07/06/19 07/06/19 04:12 04:12 06:05 WBC 15.0 H RBC 2.54 L Hgb 7.7 L Hct 23.1 L MCV 91 MCH 30.4 MCHC 33.4 RDW 17.5 H Plt Count 547 H Seg Neutrophils % 90.2 H Carbonic Acid 1.11 HCO3/H2CO3 Ratio 25:1 ABG pH 7.50 H ABG pCO2 36.8 ABG pO2 84.6 ABG HCO3 27.9 H ABG O2 Saturation 97.1 ABG Base Excess 4.3 FiO2 30% Sodium 137.0 Potassium 3.8 D Chloride 101 Carbon Dioxide 29 Anion Gap 7 BUN 16 Creatinine 0.61 Est GFR ( Amer) > 60 Glucose 147 H Calcium 8.3 L 07/04/19 10:10 Bronchial Washings Gram Stain - Final 07/03/19 15:11 Tracheal Aspirate Gram Stain - Final 07/03/19 15:11 Tracheal Aspirate Sputum Culture - Final Staphylococcus Aureus Acinetobacter Baumannii/Haem Klebsiella Oxytoca Normal Shakila 07/03/19 07/03/19 07/03/19 10:54 11:50 15:20 Creatine Kinase 79 54 L Troponin I < 0.012 Impressions: Chest X-Ray 07/06/19 06:00 IMPRESSION: Stable left apical mass and patchy basilar opacities. Enteric tube side port at GE junction. Consider advancing 5 cm. All labs, radiographs, diagnostic studies and EKGs were personally reviewed: Yes In addition, reports of radiographic and diagnostic studies were read: Yes Assessment and Plan - Diagnosis (1) Cardiac arrest due to respiratory disorder Is this a current diagnosis for this admission?: Yes Plan: He may have an anoxic encephalopathy. He did not have signs of encephalopathy before arrest to the best we can tell. He may also have a degree of alcohol WD. This is speculative. We have tried to lighten up sedation to explore his treatment goals but this has not been possible. Haldol discontinued and seraquel. (2) Emphysema of lung Qualifiers: Emphysema type: panlobular Qualified Code(s): J43.1 - Panlobular emphysema Is this a current diagnosis for this admission?: Yes (3) Mass of left lung Is this a current diagnosis for this admission?: Yes Plan: Historically by old records, he wants no treatment. No pulmonolgy input, Not CTx, Rtx. Not a surgical candidate. His mental status and lack of family make DNR status and comfort care difficult to pursue. We have our health and social care teacher Den trying to elicit more information fron friends and possible DNR status. (4) COPD (chronic obstructive pulmonary disease) Qualifiers: COPD type: COPD with acute exacerbation Qualified Code(s): J44.1 - Chronic obstructive pulmonary disease with (acute) exacerbation Is this a current diagnosis for this admission?: Yes Plan: He is having slight wheezing. (5) Anemia Qualifiers: Anemia type: other cause Other causes of anemia: chronic disease, other Qualified Code(s): D63.8 - Anemia in other chronic diseases classified elsewhere Is this a current diagnosis for this admission?: Yes Plan: Anemia lightly improved. No transfusion needed. Multifactorial with acute illness, malignancy, chronic illness as well. (6) Leukocytosis Qualifiers: Leukocytosis type: unspecified Qualified Code(s): D72.829 - Elevated white blood cell count, unspecified Is this a current diagnosis for this admission?: Yes Plan: Improved. His sputum culture has Staph, klebsiella and acinetobacter, all sensitive to rocephin. Plan Summary: As above. Weaning trial again today. Amend sedation to try and converse at least. Critical Time Critical Time (minutes): 40 Level of Care: ICU Anticipated discharge: Hospice Within: Other -: 1. The care of a critical patient is a dynamic process. This note is a rep resentative synopsis but static in nature. The timeframe for treatments given in order is not necessary the actual time these treatments may have been done. 2. This patient requires critical care secondary to ongoing requirements for therapy not offered or safe outside the critical care environment. Transfer to a lower level of care with altered life or limb morbidity and mortality. 3. Multidisciplinary rounds completed. 4. ABCDE bundle addressed.
[2019-07-06] MEDS: AZITHROMYCIN 500 MG in DEXTROSE 5%-WATER 250 ML IV SCH (10:12)
[2019-07-06] MEDS: CEFTRIAXONE 2 GM/D5W RTU 2 GM/50 ML RTUPB IV SCH (10:12)
[2019-07-06] MEDS: FAMOTIDINE 20 MG TABLET PO SCH (10:12)
[2019-07-06] MEDS: METHYLPREDNISOLONE INJ 40 MG/1 ML SDV IV SCH (10:12)
[2019-07-06] MEDS: FOLIC ACID 1 MG TABLET PO SCH (10:12)
[2019-07-06] MEDS: QUETIAPINE FUMARATE 25 MG TABLET PO SCH ×2 (11:05→21:59)
[2019-07-06 14:22] VITALS: BP 123/65
--- NOTE | 2019-07-06 14:50 | Progress Note ---
Provider Note Provider Note: I've spoken to Dr. Wilks regarding this patients poor prognosis. He is extubated but has respirations bordering on agonal. In my opinion he will need re-intubation in the foreseable future. But this will not remedy the situation. He looks the same as before his initial intubation. Therefore we, Dr. Wilks and myself, have made him a DNR based on futility of futher treatment. He has historically not wanted treatment, Ctx, Rtx, pulmonology evaluation. Total critical care time 30 minutes.
--- NOTE | 2019-07-06 14:56 | Progress Note ---
Provider Note Provider Note: Pt will now be comfort care.
[2019-07-06] MEDS: MORPHINE SULFATE 10 MG/ML INJ IV PRN ×3 (15:54→22:02)
[2019-07-07] MEDS: IPRATROPIUM/ALBUTEROL 0.5-2.5 MG/3 ML AMPUL NEB SCH ×3 (00:29→08:31)
[2019-07-07] MEDS: MORPHINE SULFATE 10 MG/ML INJ IV PRN ×2 (02:07→14:19)
[2019-07-07] MEDS: LORAZEPAM INJ 2 MG/1 ML VIAL IV PRN ×3 (04:26→13:55)
[2019-07-07] MEDS ORDERED: ATROPINE SULFATE 1% OPH SOLN 5 ML BOTTLE SL PRN (04:48)
[2019-07-07] MEDS: GABAPENTIN 100 MG CAPSULE PO SCH ×2 (05:15→14:23)
[2019-07-07] MEDS: HEPARIN SOD (PORCINE) 5,000 UNIT/ML 1 ML VIAL SUBCUT SCH (05:15)
--- NOTE | 2019-07-07 08:41 | Progress Note ---
Provider Note Provider Note: 07/07/2019-patient continues comfort measures. Continue PRN morphine, Ativan and atropine.
[2019-07-07] MEDS: QUETIAPINE FUMARATE 25 MG TABLET PO SCH (09:39)
--- NOTE | 2019-07-08 06:41 | Death Summary ---
Summary Date : 07/07/19 Time of :: 14:55 Autopsy: No Resuscitation Status: Comfort Measures Only Consulting Provider: Deangelo Montiel - Final Diagnosis (1) Cardiac arrest due to respiratory disorder Is this a current diagnosis for this admission?: Yes (2) Lung mass Is this a current diagnosis for this admission?: Yes (3) Mass of left lung Is this a current diagnosis for this admission?: Yes (4) Postobstructive pneumonia Is this a current diagnosis for this admission?: Yes Hospital Course:: Patient initially presented to the ER on 07/03/2019 status post rest robina risk on mechanical ventilation. Patient with ICU and was treated aggressively. Patient's initial blood pressure on presentation was 70/30 with a heart rate of 87 pulse ox of 99% with elevated respiratory rate between 30 and 40. He was given DuoNeb treatments he was an extremis. Patient developed atrial arrhythmia with reduction heart rate 57 he quickly became extremely bradycardic with a rate of 30 or less and then apneic. Patient had a [id number] chest compressions resuscitation was started. He was intubated and placed in ICU. Throughout the course of his stay patient continued to show no improvement. At that time he was made comfort measures by the ICU materials assistant. Patient was transferred to the floor where on 07/07/2019 at 1455 patient .
== END 2019-07-07 20:15 | DRG 208 ==
LOC: ER 11:20 → EH 12:31 → ICU 14:42 → 4N 07-07 03:40
PROVIDERS: ADMIT Internal Medicine Critical Care Medicine; ATTEND Anesthesiology
PROC: 0BH17EZ Insertion of Endotracheal Airway into Trachea, Via Natural or Artificial Opening (ICD-10-PCS; principal; 2019-07-03)
PROC: 5A1945Z Respiratory Ventilation, 24-96 Consecutive Hours (ICD-10-PCS; 2019-07-03)
PROC: 0B9H8ZX Drainage of Lung Lingula, Via Natural or Artificial Opening Endoscopic, Diagnostic (ICD-10-PCS; 2019-07-04)
PROC: 0B9G8ZX Drainage of Left Upper Lung Lobe, Via Natural or Artificial Opening Endoscopic, Diagnostic (ICD-10-PCS; 2019-07-04)
DX: C34.12 Malignant neoplasm of upper lobe, left bronchus or lung (principal); J18.9 Pneumonia, unspecified organism; J96.90 Respiratory failure, unspecified, unspecified whether with hypoxia or hypercapnia; R64 Cachexia; E87.2 Acidosis; Z51.5 Encounter for palliative care; F43.10 Post-traumatic stress disorder, unspecified; F32.9 Major depressive disorder, single episode, unspecified; I73.9 Peripheral vascular disease, unspecified; I46.9 Cardiac arrest, cause unspecified; D63.0 Anemia in neoplastic disease; D72.829 Elevated white blood cell count, unspecified; F17.210 Nicotine dependence, cigarettes, uncomplicated; Z66 Do not resuscitate; J43.1 Panlobular emphysema; I10 Essential (primary) hypertension; M19.90 Unspecified osteoarthritis, unspecified site; F10.10 Alcohol abuse, uncomplicated; Z89.511 Acquired absence of right leg below knee; Z89.521 Acquired absence of right knee; Z79.899 Other long term (current) drug therapy; L89.322 Pressure ulcer of left buttock, stage 2; Z78.1 Physical restraint status
CPT/HCPCS: 36415; 51702; 71045; 80048; 80053; 80061; 80076; 80307; 81001; 82140; 82375; 82550; 82803; 82962; 83605; 83735; 84100; 84443; 84484; 85025; 85610; 85730; 86850; 86900; 86901; 87015; 87040; 87070; 87077; 87101; 87116; 87186; 87205; 87206; 87486; 88305; 89050; 93005; 93010; 94002; 94003; 99285; 99291; 99292; A4649; J0171; J0456; J0696; J1630; J1644; J1940; J2060; J2250; J2270; J2704; J2920; J2930; J3010; J3411; J3490; J7030; J7050; J7060; J7120; J7620; P9041